=== PATIENT | female | born 1940 | race Hispanic/Latino ===

== ENCOUNTER 2018-07-14 15:17 | Inpatient (IN) | payer MEDICARE, BC ==
--- NOTE | 2018-07-14 16:24 | ED PDOC ---
Arrival/HPI - General Time Seen by Provider: 07/14/18 16:05 Historian: Patient - History of Present Illness Narrative History of Present Illness (Text): 07/14/18 16:20 77 year old female, whose past medical history includes CVA and a heart valve replacement, who presents to the ED complaining for right hand swelling and pain s/p fall yesterday. Patient states she tripped on her own feet and fell on cement onto her right hand. Patient notes she had a bracelet on her left hand and developed a reaction. Patient denies any LOC, head trauma, fever, chills, nausea, vomiting, diarrhea, back pain, neck pain, or any other complaints. Time/Duration: Other (1 day) Symptom Onset: Sudden Symptom Course: Unchanged Activities at Onset: Light Context: Home Past Medical History - Provider Review Nursing Documentation Reviewed: Yes - Cardiac Hx Cardiac Disorders: Yes Hx Hypertension: Yes Other/Comment: aortic aneurysm - Pulmonary Hx Respiratory Disorders: Yes Hx Pneumonia: Yes - Neurological Hx Neurological Disorder: Yes HX Cerebrovascular Accident: Yes (2011) Hx Dizziness: Yes Other/Comment: sometimes can't find the right words to say post cva - HEENT Hx HEENT Disorder: Yes Hx Cataracts: Yes (b/l sx) - Renal Hx Renal Disorder: No - Endocrine/Metabolic Hx Endocrine Disorders: No - Hematological/Oncological Hx Anemia: Yes - Integumentary Hx Dermatological Disorder: No - Musculoskeletal/Rheumatological Hx Falls: No - Gastrointestinal Hx Gastrointestinal Disorders: Yes Hx Gastroesophageal Reflux: Yes - Genitourinary/Gynecological Hx Genitourinary Disorders: No - Psychiatric Hx Substance Use: No - Past Surgical History Past Surgical History: No Previous - Surgical History Hx Cardiac Catheterization: Yes (last week) Other/Comment: left breast benign cyst removed 40 yrs ago - Suicidal Assessment Feels Threatened In Home Enviroment: No Family/Social History - Physician Review Nursing Documentation Reviewed: Yes Family/Social History: Unknown Family HX Smoking Status: Never Smoked Hx Alcohol Use: No Hx Substance Use: No Hx Substance Use Treatment: No Allergies/Home Meds Allergies/Adverse Reactions: Allergies Sulfa (Sulfonamide Antibiotics) Allergy (Verified 07/14/18 16:31) ANAPHYLAXIS Home Medications: Home Meds Medication Instructions Recorded Confirmed Warfarin [Coumadin] 5 mg PO DAILY 12/19/12 07/14/18 Pravastatin Sodium [Pravachol] 20 mg PO DAILY 12/30/16 07/14/18 Alendronate [Fosamax] 70 mg PO DAILY 07/14/18 07/14/18 Metoprolol Succinate [Toprol Xl] 100 mg PO DAILY 07/14/18 07/14/18 Pantoprazole [Protonix EC Tab] 40 mg PO DAILY 07/14/18 07/14/18 Sertraline [Zoloft] 50 mg PO DAILY 07/14/18 07/14/18 traZODone [Desyrel] 50 mg PO PRN PRN 07/14/18 07/14/18 Review of Systems - Physician Review All systems were reviewed & negative as marked: Yes - Review of Systems Constitutional: Normal Eyes: Normal ENT: Normal Respiratory: Normal. absent: SOB, Cough Cardiovascular: Normal. absent: Chest Pain Gastrointestinal: Normal. absent: Abdominal Pain Genitourinary Female: Normal Musculoskeletal: Other (rigth hand swelling and pain). absent: Back Pain, Neck Pain Skin: Rash (rt wrist) Neurological: Normal. absent: Headache, Dizziness Endocrine: Normal Hemo/Lymphatic: Normal Psychiatric: Normal Physical Exam Vital Signs Temp Pulse Resp BP Pulse Ox 07/14/18 22:24 98.1 F 60 17 128/76 99 07/14/18 21:55 98.3 F 61 16 147/69 100 07/14/18 16:40 97.9 F 61 18 156/78 H 97 07/14/18 15:18 97.9 F 61 18 168/94 H 97 - Systems Exam Head: Present: Atraumatic, Normocephalic Pupils: Present: PERRL Extroacular Muscles: Present: EOMI Conjunctiva: Present: Normal Mouth: Present: Moist Mucous Membranes Neck: Present: Normal Range of Motion. No: Meningeal Signs, MIDLINE TENDERNESS , Paraspinal Tenderness Respiratory/Chest: Present: Clear to Auscultation, Good Air Exchange. No: Respiratory Distress, Accessory Muscle Use Cardiovascular: Present: Regular Rate and Rhythm, Normal S1, S2. No: Murmurs Abdomen: No: Tenderness, Distention, Peritoneal Signs Back: Present: Normal Inspection Upper Extremity: Present: NORMAL PULSES, Swelling (rt hand ). No: Cyanosis, Edema Lower Extremity: Present: Normal Inspection. No: Edema Neurological: Present: GCS=15, CN II-XII Intact, Speech Normal Skin: Present: Erythematous (rt hand), Hot, Other (multiple bullae on inner rt wrist, roughtly 2x2cm area with of bullae. No crepitus, dusky appearance or pain out of proportion or fluctuance on exam. Good N/V status distal ). No: Rashes Psychiatric: Present: Alert, Oriented x 3, Normal Insight, Normal Concentration Medical Decision Making ED Course and Treatment: 07/14/18 16:26 Impression: 77 year old female presents to the ED c/o rt arm swelling and pain s/p fall yesterday. N/V intact distaly to obvious deformity to R wrist. No open fx. Likely cellulitis on R extremity. No indication of nec fasc on exam. Will xray, consult ortho regarding cellulitis overlaying likely fx. Progress Notes: 07/14/2018 18:[address] IMPRESSION: No acute intracranial abnormalities. No significant findigns to account for the clinical presentation. No significant interval change compared to the prior examination(s). Dictator: Lawrence Pak MD Neck cleared via nexus No pain in any other locations No snuffbox tenderness Xray w/ colles fx of R hand. Xray hand and elbow- largely unremarkable abx given regarding cellulitis Paged Dr. Bernardo ortho workers compensation defense attorney x3- no response: Dr. Chavez show images- we are to reduce fracture and sugartong splint Consent w/ concious sedation done. R colles Reduced. Good n/v status post reduction. admitted to hospitalist service: PMD admits directly to hospitalist. - Lab Interpretations Lab Results: 07/14/18 16:30 07/14/18 16:30 Lab Results 07/14/18 17:47: Blood Type O POSITIVE, Antibody Screen Negative, BBK History Checked Patient has bt 07/14/18 16:30: Sodium 133, Potassium 4.5, Chloride 94 L, Carbon Dioxide 29, Anion Gap 14, BUN 14, Creatinine 0.8, Est GFR ( Amer) > 60, Est GFR (Non- Af Amer) > 60, Random Glucose 97, Calcium 9.2, Magnesium 1.7, Total Bilirubin 1.0, AST 31, ALT 19, Alkaline Phosphatase 107, Total Creatine Kinase 82, Total Protein 7.3, Albumin 3.9, Globulin 3.4, Albumin/Globulin Ratio 1.2 07/14/18 16:30: PT 29.9 H, INR 2.57, APTT 38.2 H 07/14/18 16:30: WBC 6.8, RBC 4.56, Hgb 12.4, Hct 37.4, MCV 82.0, MCH 27.2, MCHC 33.2, RDW 15.0 H, Plt Count 219, MPV 9.3, Gran % 64.8, Lymph % (Auto) 21.4 L, [place] % (Auto) 10.6 H, Eos % (Auto) 2.8, Baso % (Auto) 0.4, Gran # 4.38, Lymph # (Auto) 1.5, [place] # (Auto) 0.7 H, Eos # (Auto) 0.2, Baso # (Auto) 0.03 - RAD Interpretation Radiology Orders: 07/14/18 16:34 HEAD W/O CONTRAST [CT] Stat HAND RIGHT 3 VIEWS [RAD] Stat WRIST, RIGHT 3 VIEWS [RAD] Stat 07/14/18 18:35 ELBOW RIGHT 3 VIEWS ROUTINE [RAD] Stat 07/14/18 22:11 WRIST, RIGHT 3 VIEWS [RAD] Stat - Medication Orders Current Medication Orders: Alendronate Sodium (Fosamax) 70 mg PO Q7D@0600 FRANSICO Atorvastatin Calcium (Lipitor) 20 mg PO DIN FRANSICO Metoprolol Succinate (Toprol Xl) 100 mg PO DAILY FRANSICO Morphine Sulfate (Morphine) 2 mg IVP Q4H PRN PRN Reason: Pain, severe (8-10) Pantoprazole Sodium (Protonix Ec Tab) 40 mg PO 0600 FRANSICO Sertraline HCl (Zoloft) 50 mg PO DAILY FRANSICO Trazodone HCl (Desyrel) 50 mg PO HS PRN PRN Reason: Sedation Warfarin Sodium (Coumadin) 5 mg PO 1800 FRANSICO PRN Reason: Protocol Discontinued Medications Acetaminophen (Tylenol 325mg Tab) 650 mg PO STAT STA Stop: 07/14/18 20:43 Diphenhydramine HCl (Benadryl) 25 mg IVP STAT STA Stop: 07/14/18 17:44 Last Admin: 07/14/18 17:50 Dose: 25 mg IVP Administration Document 07/14/18 17:50 DIANA (Rec: 07/14/18 17:50 DIANA [id number]) Charges for Administration # of IVP Administrations 1 Fentanyl (Fentanyl) 50 mcg IVP ONCE ONE Stop: 07/14/18 21:44 Last Admin: 07/14/18 21:57 Dose: 50 mcg MAR Pain Assessment Document 07/14/18 21:57 [facility] (Rec: 07/14/18 22:21 [id number] Pain Reassessment Is this a pain reassessment? No Sleep Is patient sleeping during reassessment? No Presence of Pain Presence of Pain No Pain Scale Used Pain Scale Used Numeric Location Left, Right or Bilateral Right Pain Location Body Site Hand Description Description Acute Pain Behavior Irritability Aggravating Factors ADL's IVP Administration Document 07/14/18 21:57 [facility] (Rec: 07/14/18 22:21 [id number] Charges for Administration # of IVP Administrations 1 Ceftriaxone Sodium (Rocephin 1 Gram Ivpb) 1 gm in 100 mls @ 200 mls/hr IVPB STAT STA PRN Reason: Protocol Stop: 07/14/18 17:33 Last Admin: 07/14/18 17:20 Dose: 200 mls/hr eMAR Start Stop Document 07/14/18 17:20 LA (Rec: 07/14/18 17:25 LA [id number]) Intravenous Solution Start Date 07/14/18 Start Time 17:25 End Date 07/14/18 End time 17:55 Total Infusion Time 30 Midazolam HCl (Versed Inj) 1 mg IVP ONCE ONE Stop: 07/14/18 21:40 Last Admin: 07/14/18 22:20 Dose: 1 mg IVP Administration Document 07/14/18 22:20 [facility] (Rec: 07/14/18 22:20 [id number] Charges for Administration # of IVP Administrations 1 - Scribe Statement The provider has reviewed the documentation as recorded by the Scribramila Mcgovern All medical record entries made by the Scribe were at my direction and personally dictated by me. I have reviewed the chart and agree that the record accurately reflects my personal performance of the history, physical exam, medical decision making, and the department course for this patient. I have also personally directed, reviewed, and agree with the discharge instructions and disposition. Disposition/Present on Arrival - Present on Arrival Any Indicators Present on Arrival: No History of DVT/PE: No History of Uncontrolled Diabetes: No Urinary Catheter: No History Surgical Site Infection Following: None - Disposition Have Diagnosis and Disposition been Completed?: Yes Diagnosis: Colles' fracture Disposition: HOSPITALIZED Disposition Time: 23:00 Patient Plan: Admission Condition: GOOD
[2018-07-14 16:32] VITALS: BMI 23.1
[2018-07-14] MEDS ORDERED: cefTRIAXone 1 gm 1 GM/100 ML BAG IVPB STA (17:04)
[2018-07-14 17:40] LABS: BASO # 0.03 K/mm3 (0.0-2.0); BASO % 0.4 % (0.0-3.0); EOS # 0.2 (0.0-0.7); EOS % 2.8 % (1.5-5.0); GRAN # 4.38 (1.4-6.5); GRAN % 64.8 % (50.0-68.0); HEMOGLOBIN 12.4 g/dL (12.0-16.0); LYMPH # 1.5 (1.2-3.4); LYMPH % 21.4 % (22.0-35.0); MEAN CORPUSCULAR HEMOGLOBIN 27.2 pg (25.0-35.0); MEAN CORPUSCULAR HGB CONC 33.2 g/dl (31.0-37.0); MEAN PLATELET VOLUME 9.3 fl (7.0-11.0); MONO # 0.7 (0.1-0.6); MONO % 10.6 % (1.0-6.0); RBC 4.56 10^6/uL (3.5-6.1); WHITE BLOOD COUNT 6.8 10^3/ul (4.5-11.0)
[2018-07-14 17:41] LABS: ALB/GLOB RATIO 1.2 (1.1-1.8); ALBUMIN 3.9 g/dL (3.0-4.8); ALT/SGPT 19 U/L (7-56); AST/SGOT 31 U/L (14-36); BLOOD UREA NITROGEN 14 mg/dL (7-21); CALCIUM 9.2 mg/dL (8.4-10.5); GFR AFRICAN-AMERICAN > 60; GFR NON-AFRICAN AMERICAN > 60
[2018-07-14] MEDS ORDERED: DiphenhydrAMINE 50 mg/ml Inj IVP STA (17:43)
[2018-07-14 17:45] LABS: INR 2.57; PARTIAL THROMBOPLASTIN TIME 38.2 Seconds (25.1-36.5); PROTHROMBIN TIME 29.9 SECONDS (9.4-12.5)
--- NOTE | 2018-07-14 18:28 | CT ---
Date of service: 07/14/2018 PROCEDURE: CT HEAD WITHOUT CONTRAST. HISTORY: fall COMPARISON: 12/14/2012 TECHNIQUE: Axial computed tomography images were obtained through the head/brain without intravenous contrast. Coronal and sagittal reconstructed images. Radiation dose: Total exam DLP = mGy-cm. This CT exam was performed using one or more of the following dose reduction techniques: Automated exposure control, adjustment of the mA and/or kV according to patient size, and/or use of iterative reconstruction technique. FINDINGS: HEMORRHAGE: No intracranial hemorrhage. BRAIN: No mass effect or edema. Cortical atrophy and chronic microvascular ischemic change. VENTRICLES: Unremarkable. No hydrocephalus. CALVARIUM: Unremarkable. PARANASAL SINUSES: Unremarkable as visualized. No significant inflammatory changes. MASTOID AIR CELLS: Unremarkable as visualized. No inflammatory changes. OTHER FINDINGS: None. IMPRESSION: No acute intracranial abnormalities. No significant findings to account for the clinical presentation. No significant interval change compared to the prior examination(s).
[2018-07-14] MEDS ORDERED: Midazolam 2 MG/2 ML VIAL IVP ONE (21:39)
--- NOTE | 2018-07-15 00:22 | CP.PCM.HP ---
<Juanjo Ceballos - Last Filed: 07/15/18 02:28> History of Present Illness - History of Present Illness History of Present Illness: Juanjo Ceballos, PGY-1 History and Physical for Hospitalist Service CC: R wrist swelling HPI: Ms. De La Rosa is a 77 year old Female with a PMHx of Aortic aneurysm s/p Aortic valve replacement in 11/2016 (on Warfarin), CVA in 2011, cataracts, anemia , HTN, GERD who presents with R wrist swelling s/p backward mechanical fall on the cement yesterday afternoon. Patient reports pain at the site that has persisted. Patient admits to some nausea that began yesterday along with dry heaves but has since resolved. Patient reports that she has worn a medical bracelet on her R arm for years indicating that she uses Warfarin, and that she noticed swelling distally into the arm that prevented her from taking off the bracelet. Patient reports digging her fingers into her swollen arm to try to remove the bracelet. Patient reports a bruise at the site as well. Patient denies chest pain, palpitations, headaches, dizziness, shortness of breath, fevers, chills, vomiting, abdominal pain, changes in urinary or bowel habits, sick contacts or weight changes. Picture below was taken before the internal fixation in the ED. In the ED, patient underwent an internal fixation for the likely Colles fracture of the R wrist per Ortho's recommendations. Patient received midazolam , fentanyl, and ceftriaxone in the ED. PMHx: Aortic aneurysm s/p Aortic valve replacement in 11/2016, CVA in 2011, cataracts, anemia, HTN, GERD PSHx: L benign breast cyst All: Sulfa ABx (anaphylaxis) Social Hx: Social ETOH, denies IVDU and tobacco. Lives home alone Family hx: Brother and dad both from prostate CA before age 70 Meds: Trazodone 50 mg HS, Coumadin 5 mg, Zoloft 50 mg PO, Pravastatin 20 mg , Pantoprazole 40 mg, Metoprolol 100 mg, Alendronate 70 weekly PMD: Dr. Watson (Call was placed to Dr. Douglass overnight and she refused admission and deferred to hospitalist team. Cardio: Dr. Ibarra Orthopedist: Dr. Chavez Present on Admission - Present on Admission Any Indicators Present on Admission: No Review of Systems - Review of Systems Review of Systems: 12 point ROS completed and negative except as described in HPI. Past Patient History - Past Social History Smoking Status: Never Smoked - CARDIAC Hx Cardiac Disorders: Yes Hx Hypertension: Yes Other/Comment: aortic aneurysm - PULMONARY Hx Respiratory Disorders: Yes Hx Pneumonia: Yes - NEUROLOGICAL Hx Neurological Disorder: Yes HX Cerebrovascular Accident: Yes (2011) Hx Dizziness: Yes Other/Comment: sometimes can't find the right words to say post cva - HEENT Hx HEENT Problems: Yes Hx Cataracts: Yes (b/l sx) - RENAL Hx Chronic Kidney Disease: No - ENDOCRINE/METABOLIC Hx Endocrine Disorders: No - HEMATOLOGICAL/ONCOLOGICAL Hx Anemia: Yes - INTEGUMENTARY Hx Dermatological Problems: No - MUSCULOSKELETAL/RHEUMATOLOGICAL Hx Falls: No - GASTROINTESTINAL Hx Gastrointestinal Disorders: Yes Hx Gastroesophageal Reflux: Yes - GENITOURINARY/GYNECOLOGICAL Hx Genitourinary Disorders: No - PSYCHIATRIC Hx Substance Use: No - SURGICAL HISTORY Hx Cardiac Catheterization: Yes (last week) Other/Comment: left breast benign cyst removed 40 yrs ago - ANESTHESIA Hx Anesthesia: Yes Hx Anesthesia Reactions: No Hx Malignant Hyperthermia: No Meds Allergies/Adverse Reactions: Allergies Allergy/AdvReac Type Severity Reaction Status Date / Time latex Allergy Mild RASH Verified 07/15/18 20:03 Sulfa (Sulfonamide Allergy ANAPHYLAXIS Verified 07/14/18 16:31 Antibiotics) Physical Exam - Constitutional Appears: Well, Non-toxic, No Acute Distress - Head Exam Head Exam: NORMOCEPHALIC Additional comments: chronic scar in L upper forehead. - Eye Exam Eye Exam: EOMI, Normal appearance Pupil Exam: PERRL - ENT Exam ENT Exam: Mucous Membranes Moist - Neck Exam Neck exam: Positive for: Normal Inspection - Respiratory Exam Respiratory Exam: Clear to Auscultation Bilateral, NORMAL BREATHING PATTERN - Cardiovascular Exam Cardiovascular Exam: RRR, +S1, +S2 - GI/Abdominal Exam GI & Abdominal Exam: Normal Bowel Sounds, Soft. absent: Distended, Guarding, Rebound, Tenderness - Expanded Upper Extremities Exam Right General: absent: normal inspection Elbow exam: tenderness over radial head (could not evaluate because already in cast when I saw patient) Forearm Wrist exam: deformity (Refer to picture in HPI. 4 cm x 3 cm Underlying eccyhmosis underneath multiple honey colored pustules on skin.), ecchymosis, swelling, tenderness (anterior wrist) Neuro motor exam: finger 2-5 abduction intact, thumb opposition intact, wrist extension intact Neurosensory exam: 2-poit discrimination, median nerve intact, radial nerve intact Vascular exam: normal capillary refill (some bluish discoloration on palm of hand) - Back Exam Back exam: NORMAL INSPECTION. absent: CVA tenderness (L), CVA tenderness (R) - Neurological Exam Neurological exam: Alert, Oriented x3 - Psychiatric Exam Psychiatric exam: Normal Affect, Normal Mood - Skin Skin Exam: Dry, Intact, Normal Color, Warm (except as described in R forearm) Results - Vital Signs Recent Vital Signs: Last Vital Signs Temp 98.1 F 07/14/18 22:24 Pulse 60 07/14/18 22:24 Resp 17 07/14/18 22:24 BP 128/76 07/14/18 22:24 Pulse Ox 99 07/14/18 22:24 - Labs Result Diagrams: 07/14/18 16:30 07/14/18 16:30 Assessment & Plan - Assessment and Plan (Free Text) Assessment: 77 year old F with PMHx of CVA, Aortic valve replacement, HTN, GERD and anemia who presents s/p colles fracture with overlying superficial skin infection. Plan: Open fixation 2/2 Colles Fracture s/p fall with overlying secondary infection 2/ 2 staph vs allergic reaction CT head negative f/u imaging Hand x-ray, Wrist x-ray x2 and elbow x-ray after fixation Source of infection as bracelet unlikely as patient has worn bracelet for years. Infection likely 2/2 nonsterile touching to open, swollen skin after fall Keep hand elevated, f/u pulses q1 Morphine 2 mg q4 as needed for pain Clinda 600 q8 ordered for skin infection. Received Ceftriaxone in ED. ID consult placed - appreciate recommendations f/u wound and blood cx f/u AM labs Aortic valve replacement continue on Warfarin 5 home dose f/u AM PT, INR, PTT HTN c/w home meds HLD c/w home meds Mood disorder, unspecified c/w home meds GI/DVT ppx Protonix, Warfarin Disposition: OT/PT placed - f/u activity recommendations Patient seen, case reviewed and plan discussed with Dr. Martines. Juanjo Ceballos, PGY-1 <Jair Martines N - Last Filed: 07/16/18 03:09> Results - Vital Signs Recent Vital Signs: Last Vital Signs Temp 98.4 F 07/15/18 22:29 Pulse 80 07/15/18 22:29 Resp 16 07/15/18 22:29 BP 131/69 07/15/18 22:29 Pulse Ox 95 07/15/18 22:29 - Labs Result Diagrams: 07/15/18 06:20 07/15/18 06:20
[2018-07-15] MEDS ORDERED: Morphine 2 mg/ml ISec IVP PRN ×2 (00:33→10:56)
[2018-07-15] MEDS: Clindamycin 600mg/50ml D5W 600 MG/50 ML VIAL IVPB SCH ×2 (02:55→09:30)
[2018-07-15 07:00] LABS: INR 2.95; PARTIAL THROMBOPLASTIN TIME 38.7 Seconds (25.1-36.5); PROTHROMBIN TIME 34.7 SECONDS (9.4-12.5)
[2018-07-15 07:20] LABS: BASO # 0.04 K/mm3 (0.0-2.0); BASO % 0.6 % (0.0-3.0); EOS # 0.5 (0.0-0.7); EOS % 7.2 % (1.5-5.0); GRAN # 3.15 (1.4-6.5); GRAN % 49.6 % (50.0-68.0); HEMOGLOBIN 11.5 g/dL (12.0-16.0); LYMPH # 1.9 (1.2-3.4); LYMPH % 30.3 % (22.0-35.0); MEAN CELL VOLUME 82.2 fl (80.0-105.0); MEAN CORPUSCULAR HEMOGLOBIN 26.6 pg (25.0-35.0); MEAN CORPUSCULAR HGB CONC 32.3 g/dl (31.0-37.0); MEAN PLATELET VOLUME 9.6 fl (7.0-11.0); MONO # 0.8 (0.1-0.6); MONO % 12.3 % (1.0-6.0); RBC 4.33 10^6/uL (3.5-6.1); RED CELL DISTRIBUTION WIDTH 15.1 % (11.5-14.5); WHITE BLOOD COUNT 6.4 10^3/ul (4.5-11.0)
[2018-07-15 07:23] LABS: ALB/GLOB RATIO 1.1 (1.1-1.8); ALBUMIN 3.3 g/dL (3.0-4.8); ALT/SGPT 21 U/L (7-56); AST/SGOT 38 U/L (14-36); BLOOD UREA NITROGEN 16 mg/dL (7-21); CALCIUM 8.6 mg/dL (8.4-10.5); GFR AFRICAN-AMERICAN > 60; GFR NON-AFRICAN AMERICAN > 60
[2018-07-15] MEDS: Lactobacillus Acidophilus 500 MU Cap PO SCH ×2 (09:20→17:02)
[2018-07-15] MEDS: Metoprolol Succinate 100 mg XL Tab PO SCH (09:21)
--- NOTE | 2018-07-15 10:27 | RAD ---
Date of service: 07/14/2018 PROCEDURE: Right Wrist Radiographs. HISTORY: fall COMPARISON: None. FINDINGS: BONES: There is diffuse bone demineralization. There is an acute transverse nondisplaced impacted fracture in the distal radius with mild volar angulation and 6 mm posterior displacement. There is an acute transverse nondisplaced fracture in the styloid process of ulna. 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 No dislocation. SOFT TISSUES: Normal. OTHER FINDINGS: None. IMPRESSION: Acute transverse nondisplaced impacted fracture in the distal radius with mild volar angulation and 6 mm posterior displacement. Acute transverse nondisplaced fracture in the styloid process of ulna.
--- NOTE | 2018-07-15 10:45 | RAD ---
PROCEDURE: Right Hand Radiographs. HISTORY: fall COMPARISON: None. FINDINGS: BONES: There is diffuse bone demineralization. There is no acute displaced fracture or bone destruction. Bone alignment is normal. JOINTS: There is severe degenerative osteoarthrosis is the distal interphalangeal joints of the 2nd, 3rd and 5th digits and proximal interphalangeal joints of the 3rd and 4th disease. SOFT TISSUES: Normal. OTHER FINDINGS: None. IMPRESSION: No acute fracture or dislocation.
--- NOTE | 2018-07-15 10:47 | RAD ---
Date of service: 07/14/2018 PROCEDURE: Radiographs of the right elbow. HISTORY: fall COMPARISON: No prior. FINDINGS: BONES: Bone alignment and mineralization are normal. There is no acute displaced fracture or bone destruction. JOINTS: Normal. No osteoarthritis. SOFT TISSUES: Normal. JOINT EFFUSION: None. OTHER FINDINGS: None. IMPRESSION: No acute fracture or dislocation.
--- NOTE | 2018-07-15 12:46 | RAD ---
Date of service: 07/14/2018 PROCEDURE: Right Wrist Radiographs. HISTORY: post reduction COMPARISON: 07/14/2018 FINDINGS: BONES: Status post closed reduction of acute transverse impacted mildly posterior displaced fracture in the distal radius. There is improved alignment of the fracture fragments on the lateral projection. Redemonstration of acute nondisplaced fracture in the styloid process of ulna. There is diffuse bone demineralization. JOINTS: Normal. No dislocation. SOFT TISSUES: Normal. OTHER FINDINGS: None. IMPRESSION: Status post close reduction of distal radial fracture, interval improved alignment of fracture fragments in the lateral projection.
--- NOTE | 2018-07-15 13:18 | CP.PCM.CON ---
<Chelo Nash - Last Filed: 07/15/18 13:18> History of Present Illness - History of Present Illness History of Present Illness: PGY-2 infectious disease consult note for Dr. Alonzo's service 77 year old Female with a PMH of Aortic aneurysm s/p Aortic valve replacement in 11/2016 (on Warfarin), CVA in 2011, cataracts, anemia, HTN, GERD who presents with right wrist swelling s/p backward mechanical fall on the cement 2 days ago. Patient reports pain at the site that has persisted. Patient admits to some nausea that began shorty after the fall but has since resolved. Patient also reports fluid filled bullae on her wrist that developed after fall. Patient is concerned that is ,ay be from a medical bracelet that she wore on her right arm. She noticed swelling distally into the arm that prevented her from taking off the bracelet and had to dig her fingers into her swollen arm to try to remove the bracelet. Patient reports a bruise at the site as well. Patient denies chest pain, palpitations, headaches, dizziness, shortness of breath, fevers, chills, vomiting, abdominal pain, changes in urinary or bowel habits, sick contacts or weight changes. In ED patient had internal fixation of the fracture. PMH: Aortic aneurysm s/p Aortic valve replacement in 11/2016, CVA in 2011, cataracts, anemia, HTN, GERD PSH: hip surgery, left benign breast cyst Allergy: Sulfa Social History: Social alcohol use, denies smoking or illicit drug use. Lives home alone Family history: Brother and dad both from prostate CA before age 70 Review of Systems - Review of Systems All systems: reviewed and no additional remarkable complaints except Past Patient History - Past Social History Smoking Status: Never Smoked - CARDIAC Hx Cardiac Disorders: Yes Hx Hypertension: Yes Other/Comment: aortic aneurysm - PULMONARY Hx Respiratory Disorders: Yes Hx Pneumonia: Yes - NEUROLOGICAL Hx Neurological Disorder: Yes HX Cerebrovascular Accident: Yes (2011) Hx Dizziness: Yes Other/Comment: sometimes can't find the right words to say post cva - HEENT Hx HEENT Problems: Yes Hx Cataracts: Yes (b/l sx) - RENAL Hx Chronic Kidney Disease: No - ENDOCRINE/METABOLIC Hx Endocrine Disorders: No - HEMATOLOGICAL/ONCOLOGICAL Hx Anemia: Yes - INTEGUMENTARY Hx Dermatological Problems: No - MUSCULOSKELETAL/RHEUMATOLOGICAL Hx Falls: No - GASTROINTESTINAL Hx Gastrointestinal Disorders: Yes Hx Gastroesophageal Reflux: Yes - GENITOURINARY/GYNECOLOGICAL Hx Genitourinary Disorders: No - PSYCHIATRIC Hx Substance Use: No - SURGICAL HISTORY Hx Cardiac Catheterization: Yes (last week) Other/Comment: left breast benign cyst removed 40 yrs ago - ANESTHESIA Hx Anesthesia: Yes Hx Anesthesia Reactions: No Hx Malignant Hyperthermia: No Meds Allergies/Adverse Reactions: Allergies Allergy/AdvReac Type Severity Reaction Status Date / Time Sulfa (Sulfonamide Allergy ANAPHYLAXIS Verified 07/14/18 16:31 Antibiotics) - Medications Medications: Current Medications Atorvastatin Calcium (Lipitor) 20 mg PO DIN [facility] Last Admin: 07/15/18 01:39 Dose: 20 mg Cefazolin Sodium (Ancef 1gm In Ns) 1 gm in 100 mls @ 100 mls/hr IVPB Q8 [facility] PRN Reason: Protocol Lactobacillus Acidophilus (Bacid Acidophilus) 1 cap PO BID [facility] Last Admin: 07/15/18 09:20 Dose: 1 cap Metoprolol Succinate (Toprol Xl) 100 mg PO DAILY [facility] Last Admin: 07/15/18 09:21 Dose: 100 mg Morphine Sulfate (Morphine) 1 mg IVP Q4H PRN PRN Reason: Pain, severe (8-10) Pantoprazole Sodium (Protonix Ec Tab) 40 mg PO 0600 [facility] Sertraline HCl (Zoloft) 50 mg PO DAILY [facility] Last Admin: 07/15/18 09:20 Dose: 50 mg Trazodone HCl (Desyrel) 50 mg PO HS PRN PRN Reason: Sedation Last Admin: 07/15/18 01:39 Dose: 50 mg Warfarin Sodium (Coumadin) 5 mg PO 1800 [facility] PRN Reason: Protocol Physical Exam - Constitutional Appears: No Acute Distress - Head Exam Head Exam: ATRAUMATIC, NORMAL INSPECTION, NORMOCEPHALIC - Eye Exam Eye Exam: Normal appearance - ENT Exam ENT Exam: Mucous Membranes Moist - Respiratory Exam Respiratory Exam: Clear to Auscultation Bilateral, NORMAL BREATHING PATTERN. absent: Decreased Breath Sounds, Rales, Rhonchi, Wheezes, Respiratory Distress - Cardiovascular Exam Cardiovascular Exam: REGULAR RHYTHM, +S1, +S2, Systolic Murmur. absent: Bradycardia, Tachycardia - GI/Abdominal Exam GI & Abdominal Exam: Normal Bowel Sounds, Soft. absent: Diminished Bowel Sounds , Distended, Firm, Guarding, Tenderness - Extremities Exam Additional comments: right upper extremity with cast s/p internal fixation - Neurological Exam Neurological exam: Alert, Oriented x3 - Psychiatric Exam Psychiatric exam: Normal Affect, Normal Mood - Skin Skin Exam: Normal Color, Warm Results - Vital Signs Recent Vital Signs: Last Vital Signs Temp 98 F 07/15/18 06:00 Pulse 56 L 07/15/18 06:00 Resp 18 07/15/18 06:00 BP 135/77 07/15/18 09:21 Pulse Ox 96 07/15/18 06:00 - Labs Result Diagrams: 07/15/18 06:20 07/15/18 06:20 Labs: Laboratory Results - last 24 hr 07/15/18 07/15/18 07/15/18 06:20 06:20 06:20 WBC 6.4 RBC 4.33 Hgb 11.5 L Hct 35.6 L MCV 82.2 MCH 26.6 MCHC 32.3 RDW 15.1 H Plt Count 201 MPV 9.6 Gran % 49.6 L Lymph % (Auto) 30.3 [place] % (Auto) 12.3 H Eos % (Auto) 7.2 H Baso % (Auto) 0.6 Gran # 3.15 Lymph # (Auto) 1.9 [place] # (Auto) 0.8 H Eos # (Auto) 0.5 Baso # (Auto) 0.04 PT 34.7 H INR 2.95 APTT 38.7 H Sodium 135 Potassium 3.9 Chloride 99 Carbon Dioxide 28 Anion Gap 12 BUN 16 Creatinine 0.9 Est GFR ( Amer) > 60 Est GFR (Non-Af Amer) > 60 Random Glucose 91 Calcium 8.6 Phosphorus 3.7 Magnesium 1.7 Total Bilirubin 0.5 AST 38 H D ALT 21 Alkaline Phosphatase 86 Total Protein 6.3 Albumin 3.3 Globulin 3.0 Albumin/Globulin Ratio 1.1 TSH 3rd Generation 07/15/18 06:20 WBC RBC Hgb Hct MCV MCH MCHC RDW Plt Count MPV Gran % Lymph % (Auto) [place] % (Auto) Eos % (Auto) Baso % (Auto) Gran # Lymph # (Auto) [place] # (Auto) Eos # (Auto) Baso # (Auto) PT INR APTT Sodium Potassium Chloride Carbon Dioxide Anion Gap BUN Creatinine Est GFR ( Amer) Est GFR (Non-Af Amer) Random Glucose Calcium Phosphorus Magnesium Total Bilirubin AST ALT Alkaline Phosphatase Total Protein Albumin Globulin Albumin/Globulin Ratio TSH 3rd Generation 1.87 Assessment & Plan - Assessment and Plan (Free Text) Assessment: 77 year old Female with a PMH of Aortic aneurysm s/p Aortic valve replacement in 11/2016 (on Warfarin), CVA in 2011, cataracts, anemia, HTN, GERD who presents with right wrist swelling s/p mechanical fall found to have fractures and possible cellulitis. Xray showed acute transverse nondisplaced impacted fracture in the distal radius and nondisplaced fracture in the styloid process of the ulna. Patient is a febrile without leukocytosis, no SIRS. Will start patient on cefazolin. follow up wound cultures and blood cultures. case seen and discussed with Dr. Alonzo <Juno Alonzo - Last Filed: 07/15/18 14:59> Meds - Medications Medications: Current Medications Atorvastatin Calcium (Lipitor) 20 mg PO DIN [facility] Last Admin: 07/15/18 01:39 Dose: 20 mg Cefazolin Sodium (Ancef 1gm In Ns) 1 gm in 100 mls @ 100 mls/hr IVPB Q8 [facility] PRN Reason: Protocol Last Admin: 07/15/18 13:47 Dose: 100 mls/hr Lactobacillus Acidophilus (Bacid Acidophilus) 1 cap PO BID [facility] Last Admin: 07/15/18 09:20 Dose: 1 cap Metoprolol Succinate (Toprol Xl) 100 mg PO DAILY [facility] Last Admin: 07/15/18 09:21 Dose: 100 mg Morphine Sulfate (Morphine) 1 mg IVP Q4H PRN PRN Reason: Pain, severe (8-10) Pantoprazole Sodium (Protonix Ec Tab) 40 mg PO 0600 [facility] Sertraline HCl (Zoloft) 50 mg PO DAILY [facility] Last Admin: 07/15/18 09:20 Dose: 50 mg Trazodone HCl (Desyrel) 50 mg PO HS PRN PRN Reason: Sedation Last Admin: 07/15/18 01:39 Dose: 50 mg Warfarin Sodium (Coumadin) 5 mg PO 1800 [facility] PRN Reason: Protocol Results - Vital Signs Recent Vital Signs: Last Vital Signs Temp 98.4 F 07/15/18 14:00 Pulse 69 07/15/18 14:00 Resp 18 07/15/18 14:00 BP 108/53 L 08/17/18 14:00 Pulse Ox 96 07/15/18 14:00 - Labs Result Diagrams: 07/15/18 06:20 07/15/18 06:20 Labs: Laboratory Results - last 24 hr 07/15/18 07/15/18 07/15/18 06:20 06:20 06:20 WBC 6.4 RBC 4.33 Hgb 11.5 L Hct 35.6 L MCV 82.2 MCH 26.6 MCHC 32.3 RDW 15.1 H Plt Count 201 MPV 9.6 Gran % 49.6 L Lymph % (Auto) 30.3 [place] % (Auto) 12.3 H Eos % (Auto) 7.2 H Baso % (Auto) 0.6 Gran # 3.15 Lymph # (Auto) 1.9 [place] # (Auto) 0.8 H Eos # (Auto) 0.5 Baso # (Auto) 0.04 PT 34.7 H INR 2.95 APTT 38.7 H Sodium 135 Potassium 3.9 Chloride 99 Carbon Dioxide 28 Anion Gap 12 BUN 16 Creatinine 0.9 Est GFR ( Amer) > 60 Est GFR (Non-Af Amer) > 60 Random Glucose 91 Calcium 8.6 Phosphorus 3.7 Magnesium 1.7 Total Bilirubin 0.5 AST 38 H D ALT 21 Alkaline Phosphatase 86 Total Protein 6.3 Albumin 3.3 Globulin 3.0 Albumin/Globulin Ratio 1.1 TSH 3rd Generation 07/15/18 06:20 WBC RBC Hgb Hct MCV MCH MCHC RDW Plt Count MPV Gran % Lymph % (Auto) [place] % (Auto) Eos % (Auto) Baso % (Auto) Gran # Lymph # (Auto) [place] # (Auto) Eos # (Auto) Baso # (Auto) PT INR APTT Sodium Potassium Chloride Carbon Dioxide Anion Gap BUN Creatinine Est GFR ( Amer) Est GFR (Non-Af Amer) Random Glucose Calcium Phosphorus Magnesium Total Bilirubin AST ALT Alkaline Phosphatase Total Protein Albumin Globulin Albumin/Globulin Ratio TSH 3rd Generation 1.87 Assessment & Plan - Assessment and Plan (Free Text) Assessment: Infectious Diseases Attending Physician Addendum Patient seen and examined, discussed with medical office assistant. I have reviewed the pertinent clinical information for the patient, including history of present illness, medical, personal and social histories, lab results and imaging findings. I agree with the above findings, assessment and plan. In addition, will start Cefazolin for this patient with right distal arm fracture with associated with cellulitis. Follow up blood cx.
[2018-07-15] MEDS: ceFAZolin 1 gm in NS 1 GM/100 ML BAG IVPB SCH ×2 (13:47→22:08)
--- NOTE | 2018-07-15 23:48 | CON ---
Copied To: Bruce Singh DO Attending MD: Bruce Singh DO DATE: 07/15/2018 ORTHOPEDIC REPORT LOCATION: This is a 77-year-old female in room 564, bed 2. HISTORY OF PRESENT ILLNESS: A 77-year-old female. She has history that she has tripped and fell in the garden and sustained a highly comminuted dorsally displaced fracture of her right distal dominant radius. She did the injury on 07/13/2018, but came to the ER on 07/14/2018 and was admitted to the hospital with the swollen right distal radius. She has good neurologic status. , she has had attempted 1:01 reduction in the emergency room with suboptimal reduction, but we have to deal with this is because I do not want to reduce again right now, this was swollen as well as the chance of that could swell too much that may require urgent surgery but we are going to let the swelling subside, get a CAT scan. She is in a coaptation splint, had not well done, but I will have to be responsible for her and we will follow her and now through the x-ray it looks like of the CAT scan and I told she did need another procedure and if swelling goes down to improve the reduction of that right dominant wrist fracture. In the meantime, we will elevate it and she can ambulate with the cane in the left hand. She does live by herself. I will follow her in the office in accomplish her reduction when the swelling goes down before she goes home. Bruce Singh DO [place]
[2018-07-16] MEDS: Pantoprazole 40 mg EC Tab PO SCH (05:45)
[2018-07-16] MEDS: ceFAZolin 1 gm in NS 1 GM/100 ML BAG IVPB SCH ×3 (05:46→21:13)
[2018-07-16 06:52] LABS: BASO # 0.03 K/mm3 (0.0-2.0); BASO % 0.5 % (0.0-3.0); EOS # 0.5 (0.0-0.7); EOS % 8.3 % (1.5-5.0); GRAN # 2.76 (1.4-6.5); GRAN % 46.6 % (50.0-68.0); HEMOGLOBIN 11.7 g/dL (12.0-16.0); LYMPH % 33.6 % (22.0-35.0); MEAN CELL VOLUME 82.4 fl (80.0-105.0); MEAN CORPUSCULAR HEMOGLOBIN 26.4 pg (25.0-35.0); MEAN CORPUSCULAR HGB CONC 32.1 g/dl (31.0-37.0); MEAN PLATELET VOLUME 9.3 fl (7.0-11.0); MONO # 0.7 (0.1-0.6); RBC 4.43 10^6/uL (3.5-6.1); RED CELL DISTRIBUTION WIDTH 15.2 % (11.5-14.5); WHITE BLOOD COUNT 5.9 10^3/ul (4.5-11.0)
[2018-07-16 07:08] LABS: ALB/GLOB RATIO 1.1 (1.1-1.8); ALBUMIN 3.3 g/dL (3.0-4.8); ALT/SGPT 30 U/L (7-56); AST/SGOT 32 U/L (14-36); BLOOD UREA NITROGEN 17 mg/dL (7-21); CALCIUM 8.5 mg/dL (8.4-10.5); GFR AFRICAN-AMERICAN > 60; GFR NON-AFRICAN AMERICAN > 60
[2018-07-16 07:48] LABS: INR 2.54; PROTHROMBIN TIME 29.8 SECONDS (9.4-12.5)
[2018-07-16] MEDS: Lactobacillus Acidophilus 500 MU Cap PO SCH ×2 (09:13→17:35)
[2018-07-16] MEDS: Metoprolol Succinate 100 mg XL Tab PO SCH (09:14)
--- NOTE | 2018-07-16 13:03 | PN ---
Copied To: Wes Rose MD Attending MD: Wes Rose MD DATE: 07/16/2018 SUBJECTIVE: The patient is in bed, in no acute distress. PHYSICAL EXAMINATION: VITAL SIGNS: Temperature is 98, blood pressure is 130/60, respiratory rate of 18. HEENT: Unremarkable. NECK: Supple. LUNGS: Have decreased breath sounds. HEART: Normal S1, S2. ABDOMINAL: Soft, nontender. LABORATORY EXAMINATION: Reveals a white count of 5.9, hemoglobin of 11 and platelets of 186. Coagulation is noted. Chemistries reveals a BUN of 17, creatinine of 0.7 and microbiology reveals the blood cultures are negative. Review of orders reveals the patient to be on cefazolin. ASSESSMENT AND PLAN: A 77-year-old female with past medical history significant for aortic aneurysm with aortic valve replacement 2016, history of cerebrovascular accident, cataracts, and with a right swelling status post mechanical fall. The patient is febrile without leukocytosis. No systemic inflammatory response syndrome, on cefazolin with a right distal arm fracture and associated cellulitis. Thus far, a negative blood cultures and the patient has been afebrile throughout the hospitalization. She has no fevers and no white count. Negative blood cultures at 24 hours. We will check on the final culture results and make recommendations. Wes Rose MD : 07/16/2018 10:44:22
--- NOTE | 2018-07-16 13:42 | CP.PCM.PN ---
<Demetrio Arias - Last Filed: 07/16/18 14:57> Subjective - Date & Time of Evaluation Date of Evaluation: 07/16/18 Time of Evaluation: 07:05 - Subjective Subjective: Demertio Arias D.O PGY1 Internal Medicine Progress Note for Dr. Herbert Patient seen and examined at bedside. No significant overnight events. Patient still having right hand swelling, right thumb numbness. Pain is well controlled with meds. She is ambulating in her room, eating breakfast. Patient denied chest pain, fever, chills, SOB, headache, dizziness, palpitations. Patient is waiting to go reduction of her right wrist fracture. Objective - Vital Signs/Intake and Output Vital Signs (last 24 hours): Temp Pulse Resp BP Pulse Ox 98.4 F 69 16 150/90 95 07/15/18 22:29 07/16/18 09:14 07/15/18 22:29 07/16/18 09:14 07/15/18 22:29 - Medications Medications: Current Medications Atorvastatin Calcium (Lipitor) 20 mg PO DIN [facility] Last Admin: 07/15/18 17:02 Dose: 20 mg Cefazolin Sodium (Ancef 1gm In Ns) 1 gm in 100 mls @ 100 mls/hr IVPB Q8 [facility] PRN Reason: Protocol Last Admin: 07/16/18 05:46 Dose: 100 mls/hr Lactobacillus Acidophilus (Bacid Acidophilus) 1 cap PO BID [facility] Last Admin: 07/16/18 09:13 Dose: 1 cap Metoprolol Succinate (Toprol Xl) 100 mg PO DAILY [facility] Last Admin: 07/16/18 09:14 Dose: 100 mg Morphine Sulfate (Morphine) 1 mg IVP Q4H PRN PRN Reason: Pain, severe (8-10) Pantoprazole Sodium (Protonix Ec Tab) 40 mg PO 0600 [facility] Last Admin: 07/16/18 05:45 Dose: 40 mg Sertraline HCl (Zoloft) 50 mg PO DAILY [facility] Last Admin: 07/16/18 09:14 Dose: 50 mg Trazodone HCl (Desyrel) 50 mg PO HS PRN PRN Reason: Sedation Last Admin: 07/15/18 01:39 Dose: 50 mg - Labs Labs: 07/16/18 06:15 07/16/18 06:15 PT 29.8 SECONDS (9.4-12.5) H 07/16/18 06:15 INR 2.54 07/16/18 06:15 APTT 38.7 Seconds (25.1-36.5) H 07/15/18 06:20 - Constitutional Appears: Well, No Acute Distress - Head Exam Head Exam: ATRAUMATIC, NORMAL INSPECTION, NORMOCEPHALIC - Eye Exam Eye Exam: EOMI, Normal appearance, PERRL Pupil Exam: NORMAL ACCOMODATION, PERRL - ENT Exam ENT Exam: Mucous Membranes Moist, Normal Exam - Neck Exam Neck Exam: Full ROM, Normal Inspection. absent: Lymphadenopathy - Respiratory Exam Respiratory Exam: Clear to Ausculation Bilateral, NORMAL BREATHING PATTERN - Cardiovascular Exam Cardiovascular Exam: Irregular Rhythm, +S1, +S2, Murmur - Extremities Exam Additional comments: Right arm: right wrist splint. right hand edema, numbness on right thumb. normal color, no erythema, no skin changes on fingers, intact sensation and motor function. - Back Exam Back Exam: NORMAL INSPECTION - Neurological Exam Neurological Exam: Alert, Awake, CN II-XII Intact, Normal Gait, Oriented x3 - Psychiatric Exam Psychiatric exam: Normal Affect, Normal Mood - Skin Skin Exam: Dry, Intact, Normal Color, Warm Assessment and Plan - Assessment and Plan (Free Text) Assessment: 77 y/o Female with PMH of Aortic aneurysm s/p Aortic valve replacement in 2016 (on Warfarin), CVA in 2011, cataracts, anemia, HTN, GERD who presents with right wrist swelling s/p mechanical fall. Patient found to have right acute transverse nondisplaced impacted fracture in the distal radius and non displaced fracture in the styloid process of the ulna with possible cellulitis. Plan: S/P closed reduction of right distal radial fracture with possible cellulitis - Hand x-ray S/P closed reduction shows improved alignment of fracture fragments in lateral projection - E lbow x-ray no fx or dislocation - Per ID consult: Patient is afebrile without leukocytosis, no SIRS. Will start patient on cefazolin. follow up wound cultures and blood cultures - Patient is scheduled for othropedic surgery on Wednesday as per Dr Carmen - Keep hand elevated, f/u pulses q1 - Morphine 2 mg q4 prn for pain - Blood cx. negative after 24 hr - CT head negative - CT upper extremity done. read pending Mitral valve proplase s/p aortic valve replacement - Pre-op cardiac clearance as per surgery. CXR, ECHO, EKG ordered. f/u results - Warfarin held for surgery. - f/u INR. adminster lovenox as needed. hold anticoagulation prior to surgery HTN c/w home med toprol xl HLD continue home med lipitor Depression continue home meds zoloft, trazodone GI ppx Protonix DVT ppx SCD Heart healthy diet Fall precautions Case reviewed and discussed with Teresa Herbert <Whit Herbert - Last Filed: 07/18/18 07:55> Objective - Vital Signs/Intake and Output Vital Signs (last 24 hours): Temp Pulse Resp BP Pulse Ox 97.6 F 61 20 126/54 L 95 07/17/18 21:47 07/17/18 21:47 07/17/18 21:47 07/17/18 21:47 07/17/18 21:47 Intake and Output: 07/18/18 07/18/18 06:59 18:59 Intake Total 1080 Balance 1080 - Medications Medications: Current Medications Atorvastatin Calcium (Lipitor) 20 mg PO DIN [facility] Last Admin: 07/17/18 17:38 Dose: 20 mg Cefazolin Sodium (Ancef 1gm In Ns) 1 gm in 100 mls @ 100 mls/hr IVPB Q8 [facility] PRN Reason: Protocol Last Admin: 07/18/18 06:36 Dose: 100 mls/hr Lactobacillus Acidophilus (Bacid Acidophilus) 1 cap PO BID [facility] Last Admin: 07/17/18 17:37 Dose: 1 cap Metoprolol Succinate (Toprol Xl) 100 mg PO DAILY [facility] Last Admin: 07/17/18 10:43 Dose: 100 mg Morphine Sulfate (Morphine) 1 mg IVP Q4H PRN PRN Reason: Pain, severe (8-10) Pantoprazole Sodium (Protonix Ec Tab) 40 mg PO 0600 [facility] Last Admin: 07/18/18 06:36 Dose: 40 mg Sertraline HCl (Zoloft) 50 mg PO DAILY [facility] Last Admin: 07/17/18 10:43 Dose: 50 mg Trazodone HCl (Desyrel) 50 mg PO HS PRN PRN Reason: Sedation Last Admin: 07/17/18 23:06 Dose: 50 mg Warfarin Sodium (Coumadin) 5 mg PO 1800 [facility] PRN Reason: Protocol Last Admin: 07/17/18 17:38 Dose: 5 mg - Labs Labs: 07/18/18 06:00 07/18/18 06:00 PT 23.6 SECONDS (9.4-12.5) H 07/17/18 06:30 INR 2.02 07/17/18 06:30 APTT 38.7 Seconds (25.1-36.5) H 07/15/18 06:20 Attending/Attestation - Attestation I have personally seen and examined this patient.: Yes I have fully participated in the care of the patient.: Yes I have reviewed all pertinent clinical information, including history, physical exam and plan: Yes Notes (Text): 07/18/18 07:35 Attending note; Patient seen and examined with resident. Patient is a 77 year old Female with PMH of Aortic aneurysm s/p Aortic valve replacement in 11/2016 (on Warfarin), CVA in 2011, cataracts, anemia, HTN, GERD who presents with right wrist swelling s/p mechanical fall. Patient found to have right acute transverse nondisplaced impacted fracture in the distal radius and non displaced fracture in the styloid process of the ulna with possible cellulitis. Closed reduction was done in the ER and cast was placed. Patient was seen and examined by orthopedics Dr. moncada. Currently to observe till the swelling subsides. Possible closed reduction in the OR early next week. Cellulitis; continue IV cefazolin. History of aortic valve replacement. History of atrial fibrillation. Currently on Coumadin. INR is therapeutic. Cardiology evaluation requested. Patient is clinically stable. Upon discharge the patient will follow-up with Dr. Douglass.
--- NOTE | 2018-07-16 15:01 | CARD ---
APPROVED REPORT Date of service: 07/16/2018 EKG Measurement Heart [id number] <Conclusion> Atrial fibrillation ST & T wave abnormality, consider anterior ischemia or digitalis effect Abnormal ECG
--- NOTE | 2018-07-16 15:56 | RAD ---
Date of service: 07/16/2018 HISTORY: PREOP COMPARISON: Comparison chest 12/30/2017 FINDINGS: LUNGS: Hyperinflation with increased coarsened interstitial markings. Findings suggest underlying interstitial disease. There is slight blunting right CP angle which could be due to pleural thickening and/or small effusion. Re- demonstrated are metallic surgical clips in the left hilar region unchanged PLEURA: No significant pleural effusion identified, no pneumothorax apparent. CARDIOVASCULAR: Marked cardiomegaly. . OSSEOUS STRUCTURES: No significant abnormalities. VISUALIZED UPPER ABDOMEN: Normal. OTHER FINDINGS: None. IMPRESSION: Hyperinflation with increased coarsened interstitial markings. Findings suggest underlying interstitial disease. There is slight blunting right CP angle which could be due to pleural thickening and/or small effusion. Re- demonstrated are metallic surgical clips in the left hilar region unchanged
--- NOTE | 2018-07-16 22:31 | CARD ---
APPROVED REPORT Date of service: 07/16/2018 EXAM: Two-dimensional and M-mode echocardiogram with Doppler and color Doppler. INDICATION PREOP 2D DIMENSIONS Left Atrium (2D)5.3 (1.6-4.0cm)IVSd1.5 (0.7-1.1cm) LVDd4.0 (3.9-5.9cm)PWd1.6 (0.7-1.1cm) LVDs2.8 (2.5-4.0cm)FS (%) 30.7 % LVEF (%)58.8 (>50%) M-Mode DIMENSIONS Aortic Root3.00 (2.2-3.7cm)Aortic Cusp Exc.1.70 (1.5-2.0cm) Aortic Valve AoV Peak Hqkccvjb050.0cm/Aydin Peak GR.15mmHg Mitral Valve MV E Umztjvll096.0cm/sMV E Peak Gr.159mmHg TDI Lateral E' Peak V9.46cm/sMedial E' Peak V7.41cm/sE/Lateral E'13.8 E/Medial E'17.7 Tricuspid Valve TR Peak [id number]/sRAP [id number] Peak Gr.76mmHg [id number] LEFT VENTRICLE The left ventricle is normal size. There is mild to moderate concentric left ventricular hypertrophy. The left ventricular function is normal.EF-55% There is normal LV segmental wall motion. A fib No left ventricle thrombus noted on this study. There is no ventricular septal defect visualized. There is no left ventricular aneurysm. There is no mass noted in the left ventricle. RIGHT VENTRICLE The right ventricle is severely dilated. There is normal right ventricular wall thickness. Systolic function of RV is moderately to severely reduced. ATRIA The left atrium is moderately dilated. The right atrium is moderately dilated. The interatrial septum is intact with no evidence for an atrial septal defect. AORTIC VALVE There is a bioprosthetic aortic valve prosthesis. The prosthetic aortic valve appears normal. MITRAL VALVE The mitral valve is moderately thickened. Mitral regurgitation is mild to moderate.. There is no mitral valve stenosis. There is no evidence of mitral valve prolapse. TRICUSPID VALVE There is moderate tricuspid regurgitation.RVSP-86 mmof Hg. There is severe pulmonary hypertension. S/p Trucuspid Repair PULMONIC VALVE The pulmonic valve is borderline thickened. There is mild pulmonic valvular regurgitation. There is no pulmonic valvular stenosis. GREAT VESSELS The aortic root is normal in size. The ascending aorta is normal in size. The pulmonary artery is normal. The IVC is dilated. PERICARDIAL EFFUSION There is no pleural effusion. There is no pericardial effusion. <Conclusion> The left ventricle is normal size. There is mild to moderate concentric left ventricular hypertrophy. The left ventricular function is normal.EF-55% The right ventricle is severely dilated. Systolic function of RV is moderately to severely reduced. There is a bioprosthetic aortic valve prosthesis. The prosthetic aortic valve appears normal. Mitral regurgitation is mild to moderate.. S/p Trucuspid Repair There is moderate tricuspid regurgitation.RVSP-86 mmof Hg. There is severe pulmonary hypertension. The IVC is dilated. There is no pericardial effusion. No vegetation noted.
[2018-07-17] MEDS: Pantoprazole 40 mg EC Tab PO SCH (06:48)
[2018-07-17] MEDS: ceFAZolin 1 gm in NS 1 GM/100 ML BAG IVPB SCH ×3 (06:48→21:12)
[2018-07-17 07:35] LABS: INR 2.02; PROTHROMBIN TIME 23.6 SECONDS (9.4-12.5)
[2018-07-17 07:38] LABS: BASO # 0.03 K/mm3 (0.0-2.0); BASO % 0.5 % (0.0-3.0); EOS # 0.4 (0.0-0.7); EOS % 6.1 % (1.5-5.0); GRAN # 3.28 (1.4-6.5); GRAN % 53.7 % (50.0-68.0); HEMOGLOBIN 11.2 g/dL (12.0-16.0); LYMPH # 1.7 (1.2-3.4); LYMPH % 27.7 % (22.0-35.0); MEAN CELL VOLUME 82.4 fl (80.0-105.0); MEAN CORPUSCULAR HEMOGLOBIN 26.6 pg (25.0-35.0); MEAN CORPUSCULAR HGB CONC 32.3 g/dl (31.0-37.0); MEAN PLATELET VOLUME 9.3 fl (7.0-11.0); MONO # 0.7 (0.1-0.6); RBC 4.21 10^6/uL (3.5-6.1); RED CELL DISTRIBUTION WIDTH 15.4 % (11.5-14.5); WHITE BLOOD COUNT 6.1 10^3/ul (4.5-11.0)
[2018-07-17 07:50] LABS: ALB/GLOB RATIO 1.1 (1.1-1.8); ALBUMIN 3.2 g/dL (3.0-4.8); ALT/SGPT 24 U/L (7-56); AST/SGOT 24 U/L (14-36); BLOOD UREA NITROGEN 13 mg/dL (7-21); CALCIUM 8.6 mg/dL (8.4-10.5); GFR AFRICAN-AMERICAN > 60; GFR NON-AFRICAN AMERICAN > 60
--- NOTE | 2018-07-17 10:06 | CP.PCM.PN ---
<Demetrio Arias - Last Filed: 07/17/18 16:02> Subjective - Date & Time of Evaluation Date of Evaluation: 07/17/18 Time of Evaluation: 06:23 - Subjective Subjective: Patient seen and examined at bedside. No significant overnight events. Right hand swelling is decreasing. Pain is well controlled with meds. She is ambulating in her room, has good appetite, regular bowel movements . Patient denied chest pain, fever, chills, SOB, headache, dizziness, palpitations. Patient is waiting for closed reduction of her right wrist fracture. Objective - Vital Signs/Intake and Output Vital Signs (last 24 hours): Temp Pulse Resp BP Pulse Ox 98.3 F 60 20 157/62 H 95 07/16/18 22:00 07/16/18 22:00 07/16/18 22:00 07/16/18 22:00 07/16/18 22:00 Intake and Output: 07/17/18 07/17/18 06:59 18:59 Intake Total 660 Balance 660 - Medications Medications: Current Medications Atorvastatin Calcium (Lipitor) 20 mg PO DIN [facility] Last Admin: 07/16/18 17:35 Dose: 20 mg Cefazolin Sodium (Ancef 1gm In Ns) 1 gm in 100 mls @ 100 mls/hr IVPB Q8 [facility] PRN Reason: Protocol Last Admin: 07/17/18 06:48 Dose: 100 mls/hr Lactobacillus Acidophilus (Bacid Acidophilus) 1 cap PO BID [facility] Last Admin: 07/16/18 17:35 Dose: 1 cap Metoprolol Succinate (Toprol Xl) 100 mg PO DAILY [facility] Last Admin: 07/16/18 09:14 Dose: 100 mg Morphine Sulfate (Morphine) 1 mg IVP Q4H PRN PRN Reason: Pain, severe (8-10) Pantoprazole Sodium (Protonix Ec Tab) 40 mg PO 0600 [facility] Last Admin: 07/17/18 06:48 Dose: 40 mg Sertraline HCl (Zoloft) 50 mg PO DAILY [facility] Last Admin: 07/16/18 09:14 Dose: 50 mg Trazodone HCl (Desyrel) 50 mg PO HS PRN PRN Reason: Sedation Last Admin: 07/17/18 00:58 Dose: 50 mg Warfarin Sodium (Coumadin) 5 mg PO 1800 [facility] PRN Reason: Protocol - Labs Labs: 07/17/18 06:30 07/17/18 06:30 PT 23.6 SECONDS (9.4-12.5) H 07/17/18 06:30 INR 2.02 07/17/18 06:30 APTT 38.7 Seconds (25.1-36.5) H 07/15/18 06:20 - Constitutional Appears: Well, No Acute Distress - Head Exam Head Exam: ATRAUMATIC, NORMAL INSPECTION, NORMOCEPHALIC - Eye Exam Eye Exam: EOMI, Normal appearance, PERRL Pupil Exam: NORMAL ACCOMODATION, PERRL - ENT Exam ENT Exam: Mucous Membranes Moist, Normal Exam - Neck Exam Neck Exam: Full ROM, Normal Inspection. absent: Lymphadenopathy - Respiratory Exam Respiratory Exam: Clear to Ausculation Bilateral, NORMAL BREATHING PATTERN - Cardiovascular Exam Cardiovascular Exam: Irregular Rhythm, +S1, +S2, Murmur - GI/Abdominal Exam GI & Abdominal Exam: Soft, Normal Bowel Sounds. absent: Tenderness - Rectal Exam Rectal Exam: Deferred - Extremities Exam Extremities Exam: Normal Capillary Refill Additional comments: Right arm: right wrist splint. right hand edema, numbness on right thumb. normal color, no erythema, no skin changes on fingers, intact sensation and motor function. - Back Exam Back Exam: NORMAL INSPECTION - Neurological Exam Neurological Exam: Alert, Awake, CN II-XII Intact, Normal Gait, Oriented x3 - Psychiatric Exam Psychiatric exam: Normal Affect, Normal Mood - Skin Skin Exam: Erythema (right hand) Assessment and Plan - Assessment and Plan (Free Text) Assessment: 77 y/o Female with PMH of Aortic aneurysm s/p Aortic valve replacement, CVA in 2011, cataracts, anemia, HTN, GERD who presents with right wrist swelling s/p mechanical fall. Patient found to have right acute transverse non-displaced impacted fracture in the distal radius and non displaced fracture in the styloid process of the ulna with possible cellulitis. Plan: S/P closed reduction of right distal radial fracture with possible cellulitis - Hand x-ray S/P closed reduction shows improved alignment of fracture fragments in lateral projection - Elbow x-ray no fx or dislocation - Per ID consult: Patient is afebrile without leukocytosis, no SIRS. patient on cefazolin - Wound cultures and blood cultures, no growth to date - Patient is scheduled for othropedic surgery on Wednesday as per Dr Carmen - Keep hand elevated, f/u pulses q1 - Morphine 2 mg q4 prn for pain - Blood cx. negative after 24 hr - CT head negative - CT upper extremity done. read pending H/O atrial fibrilation - EKG shows afib - Warfarin 5 mg will be resumed tonight - INR 2.02. continue to monitor Mitral valve proplase s/p aortic valve replacement - Pre-op cardiac clearance as per surgery. - CXR: hyperinflation with coarsened interstitial marking suggistive with interstitial disease. Slight blunting of CP angle - Echo: LV normal size and function. EF 55%. RV severly dilated. RV Systolic function severely reduced HTN - c/w home med toprol xl HLD - continue home med lipitor Depression - continue home meds zoloft, trazodone -GI ppx Protonix -DVT ppx SCD -Heart healthy diet -Fall precautions Case reviewed and discussed with Teresa Herbert <Whit Herbert - Last Filed: 07/18/18 13:48> Objective - Vital Signs/Intake and Output Vital Signs (last 24 hours): Temp Pulse Resp BP Pulse Ox 97.7 F 58 L 18 130/62 96 07/18/18 07:51 07/18/18 07:51 07/18/18 07:51 07/18/18 09:11 07/18/18 07:51 Intake and Output: 07/18/18 07/18/18 06:59 18:59 Intake Total 1080 Balance 1080 - Medications Medications: Current Medications Atorvastatin Calcium (Lipitor) 20 mg PO DIN [facility] Last Admin: 07/17/18 17:38 Dose: 20 mg Enoxaparin Sodium (Lovenox) 70 mg SC Q12H [facility] PRN Reason: Protocol Cefazolin Sodium (Ancef 1gm In Ns) 1 gm in 100 mls @ 100 mls/hr IVPB Q8 [facility] PRN Reason: Protocol Last Admin: 07/18/18 06:36 Dose: 100 mls/hr Lactobacillus Acidophilus (Bacid Acidophilus) 1 cap PO BID [facility] Last Admin: 07/18/18 09:10 Dose: 1 cap Metoprolol Succinate (Toprol Xl) 100 mg PO DAILY [facility] Last Admin: 07/18/18 09:11 Dose: 100 mg Morphine Sulfate (Morphine) 1 mg IVP Q4H PRN PRN Reason: Pain, severe (8-10) Pantoprazole Sodium (Protonix Ec Tab) 40 mg PO 0600 [facility] Last Admin: 07/18/18 06:36 Dose: 40 mg Sertraline HCl (Zoloft) 50 mg PO DAILY [facility] Last Admin: 07/18/18 09:11 Dose: 50 mg Trazodone HCl (Desyrel) 50 mg PO HS PRN PRN Reason: Sedation Last Admin: 07/17/18 23:06 Dose: 50 mg Warfarin Sodium (Coumadin) 5 mg PO 1800 [facility] PRN Reason: Protocol Last Admin: 07/17/18 17:38 Dose: 5 mg - Labs Labs: 07/18/18 06:00 07/18/18 06:00 PT 18.8 SECONDS (9.4-12.5) H 07/18/18 08:35 INR 1.62 07/18/18 08:35 APTT 38.7 Seconds (25.1-36.5) H 07/15/18 06:20 Attending/Attestation - Attestation I have personally seen and examined this patient.: Yes I have fully participated in the care of the patient.: Yes I have reviewed all pertinent clinical information, including history, physical exam and plan: Yes Notes (Text): 07/18/18 13:43 Attending note; Patient seen and examined with resident. Patient is a 77 year old Female with PMH of Aortic aneurysm s/p Aortic valve replacement in 11/2016 (on Warfarin), CVA in 2011, cataracts, anemia, HTN, GERD who presents with right wrist swelling s/p mechanical fall. Patient found to have right acute transverse nondisplaced impacted fracture in the distal radius and non displaced fracture in the styloid process of the ulna with possible cellulitis. Closed reduction was done in the ER and cast was placed. Patient was seen and examined by orthopedics Dr. moncada. Possible closed reduction vs open reduction in the OR early next week. Cellulitis; continue IV cefazolin. History of aortic valve replacement. History of atrial fibrillation. Currently on Coumadin. Cardiology evaluation appreciated. switch to sc lovenox till surgery. restart coumadin after surgery. Patient is clinically stable. Upon discharge the patient will follow-up with Dr. Douglass.
[2018-07-17] MEDS: Lactobacillus Acidophilus 500 MU Cap PO SCH ×2 (10:42→17:37)
[2018-07-17] MEDS: Metoprolol Succinate 100 mg XL Tab PO SCH (10:43)
--- NOTE | 2018-07-17 11:18 | CARD ---
APPROVED REPORT Date of service: 07/17/2018 EKG Measurement Heart [id number] <Conclusion> Atrial fibrillation Nonspecific ST abnormality, probably digitalis effect Abnormal ECG
--- NOTE | 2018-07-17 12:46 | PN ---
Copied To: Wes Rose MD Attending MD: Wes Rose MD DATE: 07/17/2018 SUBJECTIVE: The patient is in bed, in no acute distress, nontoxic. PHYSICAL EXAMINATION: VITAL SIGNS: On exam, temperature is 98, blood pressure is 150/60, respiratory rate of 18. HEENT: Examination of HEENT is unremarkable. NECK: Supple. LUNGS: Have decreased breath sounds. HEART: Normal S1, S2. ABDOMEN: Soft, nontender. LABORATORY DATA: Laboratory examination reveals a white count of 6.1, hemoglobin of 11, platelets of 208. Chemistries reveals a BUN of 13, creatinine of 0.7. Microbiology reveals the patient to have blood cultures are negative. Wound cultures are pending. Review of orders revealed the patient to be on cefazolin. ASSESSMENT AND PLAN: A 77-year-old female, seen earlier today in 564, bed 2 with aortic aneurysm, aortic valve replacement in 2017, cerebrovascular accident, cataracts with a right status post mechanical fall with a right distal arm fracture and associated cellulitis. Negative blood cultures. No fevers. Normal white count. Blood cultures are negative so far. In cefazolin, day #3. We will check on the CAT scan of the upper extremity with the results are pending. Wes Rose MD
--- NOTE | 2018-07-17 14:10 | CON ---
Copied To: Ryan Escobedo MD Attending MD: Ryan Escobedo MD DATE: 07/17/2018 CONSULTATION INDICATIONS: Preop, status post fall with right wrist fracture. HISTORY: This is a 77-year-old woman known to our practice, admitted on 07/14/2018 after mechanical fall in which she fell and fractured her right wrist. She states that she turned suddenly to talk to a neighbor and fell on concrete. There was a cellulitic area onthe right wrist as well. She has a splint. Surgery is planned although the date is not set. It sounds as if it will be semi-elective due to swelling. There was no chest pain, shortness of breath, orthopnea, PND, syncope, presyncope, lightheadedness, dizziness, vertigo, palpitations, fever, chills, cough, sputum production, hemoptysis, abdominal pain, nausea, vomiting, diarrhea, constipation, melena. She has a history of the aortic valve replacement with proximal aortic root repair and tricuspid valvuloplasty. She had severe AI with an aortic aneurysm. She has a history of atrial fibrillation, on warfarin; hypertension; hyperlipidemia; stroke; cataracts; anemia and GERD. MEDICATIONS AT TIME OF ADMISSION: Include warfarin, trazodone, Fosamax, Pravachol, Protonix, metoprolol, Zoloft. ALLERGIES: SHE NOTES ALLERGIES TO SULFA, INTOLERANCE TO BETA BLOCKERS AND BONIVA. SOCIAL HISTORY: She is . She lives at home. She is ambulatory. She does not smoke. She drinks alcohol on rare occasions. FAMILY HISTORY: Notable for heart disease and cancer. REVIEW OF SYSTEMS: A 10-point review of systems otherwise unremarkable except as noted above. PHYSICAL EXAMINATION: GENERAL: She is a well-developed elderly woman lying in bed on 5R, in no acute distress. VITAL SIGNS: Pulse is 60, afebrile, 157/62, respirations 20, O2 sat 95% on room air. HEENT: Exam reveals no neck vein distention, thyromegaly, carotid bruits. Mucous membranes moist. Conjunctiva pink. NECK: Supple. LUNGS: Lung youssef clear. HEART: Revealed normal first and second heart sound. There is soft systolic murmur along the left sternal border. ABDOMEN: Soft. Bowel sounds present. No mass, organomegaly, tenderness, rebound or guarding. No CVA tenderness. No palpable abdominal aortic aneurysm. EXTREMITIES: Revealed no cyanosis, clubbing or edema. NEUROLOGIC: Awake, alert and oriented. PSYCHIATRIC: Normal as to mood and affect. SKIN: Warm and dry. No rash or cellulitis. The right wrist is in a splint. LABORATORY AND IMAGING: EKG demonstrates atrial fibrillation, poor R-wave progression, LVH, ST-T wave changes consistent with ischemia. No change from a prior EKG. A right hand x-ray reveals no acute fracture. A CT of the head reveals no acute intracranial abnormalities. A right wrist x-ray reveals acute fracture, see details. A right elbow x-ray reveals no fracture and upper extremity CT is pending. An echocardiogram is noted. Normal LV size and function, dilated right ventricle with reduced systolic function, perhaps over-read. The prosthetic valve appeared normal. There is [id number] MR, a tricuspid annuloplasty, moderate tricuspid regurgitation, severe pulmonary hypertension. The chest x-ray revealed hyperinflation and coarse interstitial markings, see report. White counts are normal. Hemoglobin 11.2, hematocrit 34.7, platelet count normal. PT/INR, PTT consistent with warfarin therapy. Today's INR is 2.02 with a PT of 23.6. Electrolytes, BUN, creatinine, blood sugar LFTs all normal. TSH normal. IMPRESSION: Tracy De La Rosa is a 77-year-old woman with a mechanical fall and right wrist fracture with an abraded area in the skin, possible cellulitis or irritation from a medical alert bracelet at the time of fall with a cardiac history including thoracic aortic aneurysm repair with aortic valve replacement and tricuspid valvuloplasty. She has chronic atrial fibrillation, on Coumadin with therapeutic levels. At this time, I await Orthopedics decision with regard to surgery. Prior to surgery, we will hold warfarin and bridge with Lovenox. She should be considered [id number] increased cardiac risk because of underlying cardiac issues. There is no absolute contraindication however. Metoprolol should be continued throughout the perioperative period. Infectious Disease is following her. Blood cultures are negative so far at 48 hours. I will follow along with you and make additional recommendations based on her clinical course. Ryan Escobedo MD [facility] # [id number] MTDD
--- NOTE | 2018-07-18 06:18 | CP.PCM.PN ---
<Demetrio Arias - Last Filed: 07/18/18 15:08> Subjective - Date & Time of Evaluation Date of Evaluation: 07/18/18 Time of Evaluation: 05:50 - Subjective Subjective: Patient seen and examined at bedside. No significant overnight events. Right hand swelling is improving. Pain is well controlled with meds. She can ambulate in her room. Patient denied chest pain, fever, chills, SOB, headache, dizziness , palpitations. Patient is waiting for closed reduction of her right wrist fracture. Objective - Vital Signs/Intake and Output Vital Signs (last 24 hours): Temp Pulse Resp BP Pulse Ox 97.6 F 61 20 126/54 L 95 07/17/18 21:47 07/17/18 21:47 07/17/18 21:47 07/17/18 21:47 07/17/18 21:47 Intake and Output: 07/17/18 07/18/18 18:59 06:59 Intake Total 1080 Balance 1080 - Medications Medications: Current Medications Atorvastatin Calcium (Lipitor) 20 mg PO DIN [facility] Last Admin: 07/17/18 17:38 Dose: 20 mg Cefazolin Sodium (Ancef 1gm In Ns) 1 gm in 100 mls @ 100 mls/hr IVPB Q8 [facility] PRN Reason: Protocol Last Admin: 07/17/18 21:12 Dose: 100 mls/hr Lactobacillus Acidophilus (Bacid Acidophilus) 1 cap PO BID [facility] Last Admin: 07/17/18 17:37 Dose: 1 cap Metoprolol Succinate (Toprol Xl) 100 mg PO DAILY [facility] Last Admin: 07/17/18 10:43 Dose: 100 mg Morphine Sulfate (Morphine) 1 mg IVP Q4H PRN PRN Reason: Pain, severe (8-10) Pantoprazole Sodium (Protonix Ec Tab) 40 mg PO 0600 [facility] Last Admin: 07/17/18 06:48 Dose: 40 mg Sertraline HCl (Zoloft) 50 mg PO DAILY [facility] Last Admin: 07/17/18 10:43 Dose: 50 mg Trazodone HCl (Desyrel) 50 mg PO HS PRN PRN Reason: Sedation Last Admin: 07/17/18 23:06 Dose: 50 mg Warfarin Sodium (Coumadin) 5 mg PO 1800 [facility] PRN Reason: Protocol Last Admin: 07/17/18 17:38 Dose: 5 mg - Labs Labs: 07/17/18 06:30 07/17/18 06:30 PT 23.6 SECONDS (9.4-12.5) H 07/17/18 06:30 INR 2.02 07/17/18 06:30 APTT 38.7 Seconds (25.1-36.5) H 07/15/18 06:20 - Constitutional Appears: Well, No Acute Distress - Head Exam Head Exam: ATRAUMATIC, NORMAL INSPECTION, NORMOCEPHALIC - Eye Exam Eye Exam: EOMI, Normal appearance, PERRL Pupil Exam: NORMAL ACCOMODATION, PERRL - ENT Exam ENT Exam: Mucous Membranes Moist, Normal Exam - Neck Exam Neck Exam: Full ROM, Normal Inspection. absent: Lymphadenopathy - Respiratory Exam Respiratory Exam: Clear to Ausculation Bilateral, NORMAL BREATHING PATTERN - Cardiovascular Exam Cardiovascular Exam: Irregular Rhythm, +S1, +S2, Murmur (systolic murmur) - GI/Abdominal Exam GI & Abdominal Exam: Soft, Normal Bowel Sounds. absent: Tenderness - Rectal Exam Rectal Exam: Deferred - Extremities Exam Extremities Exam: Full ROM, Normal Capillary Refill, Normal Inspection. absent : Joint Swelling, Pedal Edema Additional comments: splint on right right forearm and wrist. improving right hand swelling can move right fingers. sensation intact no color changes - Back Exam Back Exam: NORMAL INSPECTION - Neurological Exam Neurological Exam: Alert, Awake, CN II-XII Intact, Normal Gait, Oriented x3 - Psychiatric Exam Psychiatric exam: Normal Affect, Normal Mood - Skin Skin Exam: Dry, Intact, Normal Color, Warm Additional comments: misternal scar Assessment and Plan - Assessment and Plan (Free Text) Assessment: 77 y/o Female with PMH of Aortic aneurysm s/p Aortic valve replacement, CVA in 2011, cataracts, anemia, HTN, GERD who presents with right wrist swelling s/p mechanical fall. Patient found to have right acute transverse non-displaced impacted fracture in the distal radius and non displaced fracture in the styloid process of the ulna. Scheduled for closed reduction orthopedic surgery on Wednesday. Plan: S/P closed reduction of right distal radial fracture - CT upper extremity: comminuted fracture of distal radius extending to articular surface. impacted fx, no significant angulation. fracture of of ulnar styloid. - Patient is scheduled for orthopedic surgery on Wednesday as per Dr Carmen - Hand x-ray S/P closed reduction shows improved alignment of fracture fragments in lateral projection - Per ID consult: Patient is afebrile without leukocytosis, no SIRS. patient on cefazolin - Wound cultures and blood cultures, no growth to date - Keep hand elevated, f/u pulses - Morphine 2 mg q4 prn for pain - CT head negative H/O atrial fibrilation - EKG shows afib - Warfarin held - Lovenox q12h - INR 1.62 today Mitral valve proplase s/p aortic valve replacement - Pre-op cardiac clearance as per surgery. - CXR: hyperinflation with coarsened interstitial marking suggistive with interstitial disease. Slight blunting of CP angle - Echo: LV normal size and function. EF 55%. RV severly dilated. RV Systolic function severely reduced HTN - c/w home med toprol xl HLD - continue home med lipitor Depression - continue home meds zoloft, trazodone -GI ppx Protonix -DVT ppx SCD -Heart healthy diet -Fall precautions Case reviewed and discussed with Teresa Herbert <Whit Herbert - Last Filed: 07/18/18 18:27> Objective - Vital Signs/Intake and Output Vital Signs (last 24 hours): Temp Pulse Resp BP Pulse Ox 97.7 F 58 L 18 130/62 96 07/18/18 07:51 07/18/18 07:51 07/18/18 07:51 07/18/18 09:11 07/18/18 07:51 Intake and Output: 07/18/18 07/18/18 06:59 18:59 Intake Total 1080 Balance 1080 - Medications Medications: Current Medications Atorvastatin Calcium (Lipitor) 20 mg PO DIN [facility] Last Admin: 07/18/18 18:15 Dose: 20 mg Enoxaparin Sodium (Lovenox) 70 mg SC Q12H [facility] PRN Reason: Protocol Last Admin: 07/18/18 15:23 Dose: 70 mg Cefazolin Sodium (Ancef 1gm In Ns) 1 gm in 100 mls @ 100 mls/hr IVPB Q8 [facility] PRN Reason: Protocol Last Admin: 07/18/18 15:20 Dose: 100 mls/hr Lactobacillus Acidophilus (Bacid Acidophilus) 1 cap PO BID [facility] Last Admin: 07/18/18 18:15 Dose: 1 cap Metoprolol Succinate (Toprol Xl) 100 mg PO DAILY [facility] Last Admin: 07/18/18 09:11 Dose: 100 mg Morphine Sulfate (Morphine) 1 mg IVP Q4H PRN PRN Reason: Pain, severe (8-10) Pantoprazole Sodium (Protonix Ec Tab) 40 mg PO 0600 [facility] Last Admin: 07/18/18 06:36 Dose: 40 mg Sertraline HCl (Zoloft) 50 mg PO DAILY [facility] Last Admin: 07/18/18 09:11 Dose: 50 mg Trazodone HCl (Desyrel) 50 mg PO HS PRN PRN Reason: Sedation Last Admin: 07/17/18 23:06 Dose: 50 mg Warfarin Sodium (Coumadin) 5 mg PO 1800 [facility] PRN Reason: Protocol Last Admin: 07/17/18 17:38 Dose: 5 mg - Labs Labs: 07/18/18 06:00 07/18/18 06:00 PT 18.8 SECONDS (9.4-12.5) H 07/18/18 08:35 INR 1.62 07/18/18 08:35 APTT 38.7 Seconds (25.1-36.5) H 07/15/18 06:20 Attending/Attestation - Attestation I have personally seen and examined this patient.: Yes I have fully participated in the care of the patient.: Yes I have reviewed all pertinent clinical information, including history, physical exam and plan: Yes Notes (Text): 07/18/18 18:25 Attending note; Patient seen and examined with resident. Right hand swelling is improving. Splints changed by orthopedics today. Able to move his fingers. Patient is a 77 year old Female with PMH of Aortic aneurysm s/p Aortic valve replacement in 11/2016 (on Warfarin), CVA in 2011, cataracts, anemia, HTN, GERD who presents with right wrist swelling s/p mechanical fall. Patient found to have right acute transverse nondisplaced impacted fracture in the distal radius and non displaced fracture in the styloid process of the ulna with possible cellulitis. Closed reduction was done in the ER and cast was placed. Patient was seen and examined by orthopedics Dr. moncada. Possible closed reduction vs open reduction in the OR tomorrow. Cellulitis; continue IV cefazolin. History of aortic valve replacement. History of atrial fibrillation. Currently Coumadin on hold. Started on Lovenox. Cardiology evaluation appreciated. Patient is clinically stable for procedure tomorrow. Upon discharge the patient will follow-up with Dr. Douglass.
[2018-07-18 06:25] LABS: BASO # 0.03 K/mm3 (0.0-2.0); BASO % 0.5 % (0.0-3.0); EOS # 0.3 (0.0-0.7); EOS % 4.9 % (1.5-5.0); GRAN # 3.42 (1.4-6.5); GRAN % 52.8 % (50.0-68.0); HEMOGLOBIN 11.2 g/dL (12.0-16.0); LYMPH # 2.1 (1.2-3.4); LYMPH % 31.8 % (22.0-35.0); MEAN CELL VOLUME 83.5 fl (80.0-105.0); MEAN CORPUSCULAR HEMOGLOBIN 27.3 pg (25.0-35.0); MEAN CORPUSCULAR HGB CONC 32.7 g/dl (31.0-37.0); MEAN PLATELET VOLUME 9.5 fl (7.0-11.0); MONO # 0.7 (0.1-0.6); RBC 4.11 10^6/uL (3.5-6.1); RED CELL DISTRIBUTION WIDTH 15.5 % (11.5-14.5); WHITE BLOOD COUNT 6.5 10^3/ul (4.5-11.0)
[2018-07-18] MEDS: Pantoprazole 40 mg EC Tab PO SCH (06:36)
[2018-07-18] MEDS: ceFAZolin 1 gm in NS 1 GM/100 ML BAG IVPB SCH ×3 (06:36→22:06)
[2018-07-18 07:08] LABS: ALBUMIN 3.2 g/dL (3.0-4.8); ALT/SGPT 23 U/L (7-56); AST/SGOT 23 U/L (14-36); BLOOD UREA NITROGEN 16 mg/dL (7-21); CALCIUM 8.8 mg/dL (8.4-10.5); GFR AFRICAN-AMERICAN > 60; GFR NON-AFRICAN AMERICAN > 60
--- NOTE | 2018-07-18 08:21 | PN ---
Copied To: Bruce Singh DO Attending MD: Bruce Singh DO DATE: 07/16/2018 LOCATION: Room 564, bed 2. This is a 77-year-old female. She presented with displaced right distal radius fracture and she was inadequately reduced in the Emergency Room when she came in on 07/14/2018 and she has still quite swelling because of the attempted reduction and the initial injury. My plan is to take the cast off and do reduction at this time in the operating room where I get adequate anesthesia so she does not feel it and have x-rays right at my side and hopefully like to get away without doing any surgical intervention, like to get a good reduction with the anesthesia, I could put in a well-molded cast because some of the swelling will be down because she is on anticoagulation be safer to fix her wrist by closed reduction and application of a cast. Because she does live alone and the surgical incision has a chance of get infected, it will get contaminated with debris at the house. So hopefully I could get a cardiac clearance by Dr. Ibarra and Dr. Escobedo and do a procedure this Wednesday with some anesthesia and do a reduction under anesthesia and a x-ray and there is always a chance that she may need external fixator, but I will try to stay away from a formal ORIF. Bruce Singh DO
--- NOTE | 2018-07-18 08:26 | CP.PCM.PN ---
Subjective - Date & Time of Evaluation Date of Evaluation: 07/18/18 Time of Evaluation: 07:00 - Subjective Subjective: Stable on 5R. She feels OK. NO CP or SOB. V/S noted. PE: Lungs: clear Cor.: S1S1, sys murmur Abd.: soft Ext.: no edema Neuro.: alert Labs noted. CBC, CMP OK. INR pending. Objective - Vital Signs/Intake and Output Vital Signs (last 24 hours): Temp Pulse Resp BP Pulse Ox 97.7 F 58 L 18 128/57 L 96 07/18/18 07:51 07/18/18 07:51 07/18/18 07:51 07/18/18 07:51 07/18/18 07:51 Intake and Output: 07/18/18 07/18/18 06:59 18:59 Intake Total 1080 Balance 1080 - Medications Medications: Current Medications Atorvastatin Calcium (Lipitor) 20 mg PO DIN [facility] Last Admin: 07/17/18 17:38 Dose: 20 mg Cefazolin Sodium (Ancef 1gm In Ns) 1 gm in 100 mls @ 100 mls/hr IVPB Q8 [facility] PRN Reason: Protocol Last Admin: 07/18/18 06:36 Dose: 100 mls/hr Lactobacillus Acidophilus (Bacid Acidophilus) 1 cap PO BID [facility] Last Admin: 07/17/18 17:37 Dose: 1 cap Metoprolol Succinate (Toprol Xl) 100 mg PO DAILY [facility] Last Admin: 07/17/18 10:43 Dose: 100 mg Morphine Sulfate (Morphine) 1 mg IVP Q4H PRN PRN Reason: Pain, severe (8-10) Pantoprazole Sodium (Protonix Ec Tab) 40 mg PO 0600 [facility] Last Admin: 07/18/18 06:36 Dose: 40 mg Sertraline HCl (Zoloft) 50 mg PO DAILY [facility] Last Admin: 07/17/18 10:43 Dose: 50 mg Trazodone HCl (Desyrel) 50 mg PO HS PRN PRN Reason: Sedation Last Admin: 07/17/18 23:06 Dose: 50 mg Warfarin Sodium (Coumadin) 5 mg PO 1800 [facility] PRN Reason: Protocol Last Admin: 07/17/18 17:38 Dose: 5 mg - Labs Labs: 07/18/18 06:00 07/18/18 06:00 PT 23.6 SECONDS (9.4-12.5) H 07/17/18 06:30 INR 2.02 07/17/18 06:30 APTT 38.7 Seconds (25.1-36.5) H 07/15/18 06:20 Assessment and Plan - Assessment and Plan (Free Text) Assessment: Mechanical Fall with right wrist fracture H/O AVR with aortic root repair and TV annuloplasty Chronic AF on warfarin Echo: NL LV fx., Dilated RV, NL AVR, HBP HLD CVA Anemia GERD Cataract surgery Plan: Hold warfarin and monitor INRs for possible surgery soon. Bridge with Lovenox when INR < 1.8 Continue metoprolol on day of surgery Mild to moderate increased cardiac risk.
[2018-07-18 08:55] LABS: INR 1.62; PROTHROMBIN TIME 18.8 SECONDS (9.4-12.5)
[2018-07-18] MEDS: Lactobacillus Acidophilus 500 MU Cap PO SCH ×2 (09:10→18:15)
[2018-07-18] MEDS: Metoprolol Succinate 100 mg XL Tab PO SCH (09:11)
--- NOTE | 2018-07-18 13:25 | CT ---
Date of service: 07/16/2018 PROCEDURE: CT of the right wrist without contrast HISTORY: rt wrist fx displaced COMPARISON: TECHNIQUE: Radiation dose: Total exam DLP = 291 mGy-cm. This CT exam was performed using one or more of the following dose reduction techniques: Automated exposure control, adjustment of the mA and/or kV according to patient size, and/or use of iterative reconstruction technique. FINDINGS: There is a comminuted fracture of the distal radius extending into the articular surface. The fracture is impacted but not significantly angulated. There is also a fracture of the ulnar styloid. The report concurs with the preliminary [facility] report IMPRESSION: There is a comminuted fracture of the distal radius extending into the articular surface. The fracture is impacted but not significantly angulated. There is also a fracture of the ulnar styloid.
[2018-07-18] MEDS: Enoxaparin 80 mg Syringe SC SCH ×2 (15:23→23:18)
--- NOTE | 2018-07-18 19:58 | CP.PCM.PN ---
Subjective - Date & Time of Evaluation Date of Evaluation: 07/18/18 Time of Evaluation: 12:00 - Subjective Subjective: Eating her lunch well, no fevers, less pain on the right hand. Objective - Vital Signs/Intake and Output Vital Signs (last 24 hours): Temp Pulse Resp BP Pulse Ox 97.7 F 58 L 18 130/62 96 07/18/18 07:51 07/18/18 07:51 07/18/18 07:51 07/18/18 09:11 07/18/18 07:51 Intake and Output: 07/18/18 07/18/18 06:59 18:59 Intake Total 1080 Balance 1080 - Medications Medications: Current Medications Atorvastatin Calcium (Lipitor) 20 mg PO DIN [facility] Last Admin: 07/17/18 17:38 Dose: 20 mg Enoxaparin Sodium (Lovenox) 70 mg SC Q12H [facility] PRN Reason: Protocol Cefazolin Sodium (Ancef 1gm In Ns) 1 gm in 100 mls @ 100 mls/hr IVPB Q8 [facility] PRN Reason: Protocol Last Admin: 07/18/18 06:36 Dose: 100 mls/hr Lactobacillus Acidophilus (Bacid Acidophilus) 1 cap PO BID [facility] Last Admin: 07/18/18 09:10 Dose: 1 cap Metoprolol Succinate (Toprol Xl) 100 mg PO DAILY [facility] Last Admin: 07/18/18 09:11 Dose: 100 mg Morphine Sulfate (Morphine) 1 mg IVP Q4H PRN PRN Reason: Pain, severe (8-10) Pantoprazole Sodium (Protonix Ec Tab) 40 mg PO 0600 [facility] Last Admin: 07/18/18 06:36 Dose: 40 mg Sertraline HCl (Zoloft) 50 mg PO DAILY [facility] Last Admin: 07/18/18 09:11 Dose: 50 mg Trazodone HCl (Desyrel) 50 mg PO HS PRN PRN Reason: Sedation Last Admin: 07/17/18 23:06 Dose: 50 mg Warfarin Sodium (Coumadin) 5 mg PO 1800 [facility] PRN Reason: Protocol Last Admin: 07/17/18 17:38 Dose: 5 mg - Labs Labs: 07/18/18 06:00 07/18/18 06:00 PT 18.8 SECONDS (9.4-12.5) H 07/18/18 08:35 INR 1.62 07/18/18 08:35 APTT 38.7 Seconds (25.1-36.5) H 07/15/18 06:20 - Constitutional Appears: Chronically Ill - Head Exam Head Exam: NORMAL INSPECTION - ENT Exam ENT Exam: Mucous Membranes Moist - Neck Exam Neck Exam: absent: Meningismus - Respiratory Exam Respiratory Exam: Decreased Breath Sounds - Cardiovascular Exam Cardiovascular Exam: +S1, +S2 - GI/Abdominal Exam GI & Abdominal Exam: Soft. absent: Tenderness Assessment and Plan - Assessment and Plan (Free Text) Plan: Assessment right distal arm fracture with mild cellulitis aortic aneurysm S/P aortic valve replacement CVA cataracts chronic anemia HTN GERD Plan Continue Cefazolin day 4 - can switch to PO Keflex for another 5 days
--- NOTE | 2018-07-19 06:05 | CP.PCM.PN ---
Subjective - Date & Time of Evaluation Date of Evaluation: 07/19/18 Time of Evaluation: 05:40 Objective - Vital Signs/Intake and Output Vital Signs (last 24 hours): Temp Pulse Resp BP Pulse Ox 98.2 F 67 18 122/55 L 96 07/18/18 23:24 07/18/18 23:24 07/18/18 23:24 07/18/18 23:24 07/18/18 23:24 Intake and Output: 07/18/18 07/19/18 18:59 06:59 Intake Total 620 Balance 620 - Medications Medications: Current Medications Atorvastatin Calcium (Lipitor) 20 mg PO DIN [facility] Last Admin: 07/18/18 18:15 Dose: 20 mg Cefazolin Sodium (Ancef 1gm In Ns) 1 gm in 100 mls @ 100 mls/hr IVPB Q8 [facility] PRN Reason: Protocol Last Admin: 07/18/18 22:06 Dose: 100 mls/hr Lactobacillus Acidophilus (Bacid Acidophilus) 1 cap PO BID [facility] Last Admin: 07/18/18 18:15 Dose: 1 cap Metoprolol Succinate (Toprol Xl) 100 mg PO DAILY [facility] Last Admin: 07/18/18 09:11 Dose: 100 mg Morphine Sulfate (Morphine) 1 mg IVP Q4H PRN PRN Reason: Pain, severe (8-10) Pantoprazole Sodium (Protonix Ec Tab) 40 mg PO 0600 [facility] Last Admin: 07/18/18 06:36 Dose: 40 mg Sertraline HCl (Zoloft) 50 mg PO DAILY [facility] Last Admin: 07/18/18 09:11 Dose: 50 mg Trazodone HCl (Desyrel) 50 mg PO HS PRN PRN Reason: Sedation Last Admin: 07/18/18 23:23 Dose: 50 mg Warfarin Sodium (Coumadin) 5 mg PO 1800 [facility] PRN Reason: Protocol Last Admin: 07/17/18 17:38 Dose: 5 mg - Labs Labs: 07/18/18 06:00 07/18/18 06:00 PT 18.8 SECONDS (9.4-12.5) H 07/18/18 08:35 INR 1.62 07/18/18 08:35 APTT 38.7 Seconds (25.1-36.5) H 07/15/18 06:20
[2018-07-19] MEDS: Pantoprazole 40 mg EC Tab PO SCH (06:15)
[2018-07-19] MEDS: ceFAZolin 1 gm in NS 1 GM/100 ML BAG IVPB SCH ×2 (06:15→14:22)
[2018-07-19 07:26] LABS: BASO # 0.03 K/mm3 (0.0-2.0); BASO % 0.4 % (0.0-3.0); EOS # 0.4 (0.0-0.7); EOS % 5.7 % (1.5-5.0); GRAN # 3.4 (1.4-6.5); GRAN % 48.8 % (50.0-68.0); HEMOGLOBIN 11.2 g/dL (12.0-16.0); LYMPH # 2.5 (1.2-3.4); LYMPH % 36.3 % (22.0-35.0); MEAN CELL VOLUME 83.5 fl (80.0-105.0); MEAN CORPUSCULAR HEMOGLOBIN 26.7 pg (25.0-35.0); MEAN PLATELET VOLUME 9.8 fl (7.0-11.0); MONO # 0.6 (0.1-0.6); MONO % 8.8 % (1.0-6.0); RBC 4.19 10^6/uL (3.5-6.1); RED CELL DISTRIBUTION WIDTH 15.5 % (11.5-14.5)
[2018-07-19 07:29] LABS: INR 1.54; PROTHROMBIN TIME 17.9 SECONDS (9.4-12.5)
[2018-07-19 07:44] LABS: ALB/GLOB RATIO 1.1 (1.1-1.8); ALBUMIN 3.4 g/dL (3.0-4.8); ALT/SGPT 21 U/L (7-56); AST/SGOT 27 U/L (14-36); BLOOD UREA NITROGEN 18 mg/dL (7-21); CALCIUM 8.8 mg/dL (8.4-10.5); GFR AFRICAN-AMERICAN > 60; GFR NON-AFRICAN AMERICAN > 60
--- NOTE | 2018-07-19 08:05 | CP.PCM.PN ---
Subjective - Date & Time of Evaluation Date of Evaluation: 07/19/18 Time of Evaluation: 07:00 - Subjective Subjective: Stable on 5R. She feels OK. NO CP or SOB. V/S noted. PE: Lungs: clear Cor.: S1S1, sys murmur Abd.: soft Ext.: no edema Neuro.: alert Labs noted. CBC, CMP OK. INR 1.54 BC X2 NG at 4 days Objective - Vital Signs/Intake and Output Vital Signs (last 24 hours): Temp Pulse Resp BP Pulse Ox 98.2 F 67 90 H 144/69 96 07/19/18 07:51 07/19/18 07:51 07/19/18 07:51 07/19/18 07:51 07/19/18 07:51 Intake and Output: 07/19/18 07/19/18 06:59 18:59 Intake Total 920 Balance 920 - Medications Medications: Current Medications Atorvastatin Calcium (Lipitor) 20 mg PO DIN [facility] Last Admin: 07/18/18 18:15 Dose: 20 mg Cefazolin Sodium (Ancef 1gm In Ns) 1 gm in 100 mls @ 100 mls/hr IVPB Q8 [facility] PRN Reason: Protocol Last Admin: 07/19/18 06:15 Dose: 100 mls/hr Lactobacillus Acidophilus (Bacid Acidophilus) 1 cap PO BID [facility] Last Admin: 07/18/18 18:15 Dose: 1 cap Metoprolol Succinate (Toprol Xl) 100 mg PO DAILY [facility] Last Admin: 07/18/18 09:11 Dose: 100 mg Morphine Sulfate (Morphine) 1 mg IVP Q4H PRN PRN Reason: Pain, severe (8-10) Pantoprazole Sodium (Protonix Ec Tab) 40 mg PO 0600 [facility] Last Admin: 07/19/18 06:15 Dose: Not Given Sertraline HCl (Zoloft) 50 mg PO DAILY [facility] Last Admin: 07/18/18 09:11 Dose: 50 mg Trazodone HCl (Desyrel) 50 mg PO HS PRN PRN Reason: Sedation Last Admin: 07/18/18 23:23 Dose: 50 mg Warfarin Sodium (Coumadin) 5 mg PO 1800 [facility] PRN Reason: Protocol Last Admin: 07/17/18 17:38 Dose: 5 mg - Labs Labs: 07/19/18 06:00 07/19/18 06:00 PT 17.9 SECONDS (9.4-12.5) H 07/19/18 06:00 INR 1.54 07/19/18 06:00 APTT 38.7 Seconds (25.1-36.5) H 07/15/18 06:20 Assessment and Plan - Assessment and Plan (Free Text) Assessment: Mechanical Fall with right wrist fracture H/O AVR with aortic root repair and TV annuloplasty Chronic AF on warfarin Echo: NL LV fx., Dilated RV, NL AVR, HBP HLD CVA Anemia GERD Cataract surgery Plan: To OR later today. Continue metoprolol. Mild to moderate increased cardiac risk. Resume warfarin post op, bridge with Lovenox, as per ortho.
[2018-07-19] MEDS: Lactobacillus Acidophilus 500 MU Cap PO SCH (10:10)
[2018-07-19] MEDS ORDERED: Midazolam 2 MG/2 ML VIAL ONE (11:23)
[2018-07-19] MEDS ORDERED: MethylPREDNISolone Depo 40 mg/ml Inj ONE (12:07)
[2018-07-19] MEDS ORDERED: Bupivacaine 0.5% Inj(30mL) ONE (12:07)
[2018-07-19] MEDS ORDERED: Lactated Ringer's 1,000 ML IV SCH (12:30)
[2018-07-19 12:43] VITALS: RESP 19; TEMP 98.2; O2SAT 99
[2018-07-19 13:27] VITALS: BP 180/91; PULSE 63
--- NOTE | 2018-07-19 14:12 | OP ---
Copied To: Bruce Singh DO Attending MD: Bruce Singh DO PROCEDURE DATE: 07/19/2018 DATE OF INJURY: 07/15/2018 PREOPERATIVE DIAGNOSIS: Dorsally displaced and comminuted fracture, right distal radius and ulna. POSTOPERATIVE DIAGNOSIS: Dorsally displaced and comminuted fracture, right distal radius and ulna. PROCEDURE: Closed reduction with a taye block with Xylocaine and application of short-arm cast with manipulation of the dorsal angulation to correct it. DESCRIPTION OF PROCEDURE: The patient was taken to the OR, right wrist was prepped and draped in sterile fashion and then we gave the patient some IV sedation and a taye block by Anesthesia. Once it was taken, we were able to manipulate the right distal radius with the help of finger traction of 15 pounds and manipulation, being careful and slow to reduce the fracture to avoid excess bleeding because she is on blood thinners. We were able to accomplish the correction of the dorsal deformity under lateral view and radial shortening on the AP view. The x-ray looks improved, so we put in the plaster of mery short-arm cast after we put a dressing on the distal radius volar surface abrasion and plaster of mery and molded the cast to let that hard. X-ray showed improved position of the previously displaced distal radius fracture with the correction of the dorsal deformity and improvement of the radial length. The patient was taken to Recovery Room in good condition under taye block. Bruce Singh DO MTDTeresa
--- NOTE | 2018-07-19 14:48 | CP.PCM.PN ---
Subjective - Date & Time of Evaluation Date of Evaluation: 07/19/18 Time of Evaluation: 11:20 - Subjective Subjective: No fevers, not in distress, no increased pain in the right hand. Objective - Vital Signs/Intake and Output Vital Signs (last 24 hours): Temp Pulse Resp BP Pulse Ox 98.2 F 67 90 H 144/69 96 07/19/18 07:51 07/19/18 07:51 07/19/18 07:51 07/19/18 07:51 07/19/18 07:51 Intake and Output: 07/19/18 07/19/18 06:59 18:59 Intake Total 920 Balance 920 - Medications Medications: Current Medications Atorvastatin Calcium (Lipitor) 20 mg PO DIN [facility] Last Admin: 07/18/18 18:15 Dose: 20 mg Cefazolin Sodium (Ancef 1gm In Ns) 1 gm in 100 mls @ 100 mls/hr IVPB Q8 [facility] PRN Reason: Protocol Last Admin: 07/19/18 06:15 Dose: 100 mls/hr Lactobacillus Acidophilus (Bacid Acidophilus) 1 cap PO BID [facility] Last Admin: 07/18/18 18:15 Dose: 1 cap Metoprolol Succinate (Toprol Xl) 100 mg PO DAILY [facility] Last Admin: 07/18/18 09:11 Dose: 100 mg Morphine Sulfate (Morphine) 1 mg IVP Q4H PRN PRN Reason: Pain, severe (8-10) Pantoprazole Sodium (Protonix Ec Tab) 40 mg PO 0600 [facility] Last Admin: 07/19/18 06:15 Dose: Not Given Sertraline HCl (Zoloft) 50 mg PO DAILY [facility] Last Admin: 07/18/18 09:11 Dose: 50 mg Trazodone HCl (Desyrel) 50 mg PO HS PRN PRN Reason: Sedation Last Admin: 07/18/18 23:23 Dose: 50 mg Warfarin Sodium (Coumadin) 5 mg PO 1800 [facility] PRN Reason: Protocol Last Admin: 07/17/18 17:38 Dose: 5 mg - Labs Labs: 07/19/18 06:00 07/19/18 06:00 PT 17.9 SECONDS (9.4-12.5) H 07/19/18 06:00 INR 1.54 07/19/18 06:00 APTT 38.7 Seconds (25.1-36.5) H 07/15/18 06:20 - Constitutional Appears: Chronically Ill - Head Exam Head Exam: NORMAL INSPECTION - Respiratory Exam Respiratory Exam: Decreased Breath Sounds - Cardiovascular Exam Cardiovascular Exam: +S1, +S2 - GI/Abdominal Exam GI & Abdominal Exam: Soft. absent: Tenderness - Extremities Exam Additional comments: right forearm with cast in place Assessment and Plan - Assessment and Plan (Free Text) Plan: Assessment right distal arm fracture with mild cellulitis aortic aneurysm S/P aortic valve replacement CVA cataracts chronic anemia HTN GERD Plan Continue Cefazolin day 5 - complete total 10 days of antibiotics
[2018-07-19] MEDS ORDERED: Enoxaparin 80 mg Syringe SC SCH (16:00)
--- NOTE | 2018-07-19 16:42 | RAD ---
Date of service: 07/19/2018 PROCEDURE: Fluoroscopy up to 1 hour HISTORY: CLOSED REDUCTION OF RT. WRIST FX. COMPARISON: TECHNIQUE: Fluoroscopy was provided in the operating room. 5 seconds of fluoro time. Cumulative dose 0.34 mGy. 10 images were submitted FINDINGS: The study shows a closed reduction of the right wrist fracture. There is anatomic alignment with no angulation. IMPRESSION: As above
--- NOTE | 2018-07-20 14:56 | CP.PCM.DIS ---
Provider - Provider Date of Admission: 07/15/18 15:46 Attending physician: Whit Herbert MD Primary care physician: Fatmata Douglass MD Consults: Orthopedics urgery Infectious disease Time Spent in preparation of Discharge (in minutes): 45 Hospital Course - Lab Results Lab Results: Most Recent Lab Values WBC 7.0 10^3/ul (4.5-11.0) 07/19/18 06:00 RBC 4.19 10^6/uL (3.5-6.1) 07/19/18 06:00 Hgb 11.2 g/dL (12.0-16.0) L 07/19/18 06:00 Hct 35.0 % (36.0-48.0) L 07/19/18 06:00 MCV 83.5 fl (80.0-105.0) 07/19/18 06:00 MCH 26.7 pg (25.0-35.0) 07/19/18 06:00 MCHC 32.0 g/dl (31.0-37.0) 07/19/18 06:00 RDW 15.5 % (11.5-14.5) H 07/19/18 06:00 Plt Count 222 10^3/uL (120.0-450.0) 07/19/18 06:00 MPV 9.8 fl (7.0-11.0) 07/19/18 06:00 Gran % 48.8 % (50.0-68.0) L 07/19/18 06:00 Lymph % (Auto) 36.3 % (22.0-35.0) H 07/19/18 06:00 [place] % (Auto) 8.8 % (1.0-6.0) H 07/19/18 06:00 Eos % (Auto) 5.7 % (1.5-5.0) H 07/19/18 06:00 Baso % (Auto) 0.4 % (0.0-3.0) 07/19/18 06:00 Gran # 3.40 (1.4-6.5) 07/19/18 06:00 Lymph # (Auto) 2.5 (1.2-3.4) 07/19/18 06:00 [place] # (Auto) 0.6 (0.1-0.6) 07/19/18 06:00 Eos # (Auto) 0.4 (0.0-0.7) 07/19/18 06:00 Baso # (Auto) 0.03 K/mm3 (0.0-2.0) 07/19/18 06:00 PT 17.9 SECONDS (9.4-12.5) H 07/19/18 06:00 INR 1.54 07/19/18 06:00 APTT 38.7 Seconds (25.1-36.5) H 07/15/18 06:20 Sodium 137 mmol/L (132-148) 07/19/18 06:00 Potassium 4.2 mmol/L (3.6-5.0) 07/19/18 06:00 Chloride 100 mmol/L (98-107) 07/19/18 06:00 Carbon Dioxide 30 mmol/L (21-33) 07/19/18 06:00 Anion Gap 11 (10-20) 07/19/18 06:00 BUN 18 mg/dL (7-21) 07/19/18 06:00 Creatinine 0.7 mg/dl (0.7-1.2) 07/19/18 06:00 Est GFR ( Amer) > 60 07/19/18 06:00 Est GFR (Non-Af Amer) > 60 07/19/18 06:00 Random Glucose 93 mg/dL (70-110) 07/19/18 06:00 Calcium 8.8 mg/dL (8.4-10.5) 07/19/18 06:00 Phosphorus 3.7 mg/dL (2.5-4.5) 07/15/18 06:20 Magnesium 1.7 mg/dL (1.7-2.2) 07/15/18 06:20 Total Bilirubin 0.8 mg/dL (0.2-1.3) 07/19/18 06:00 AST 27 U/L (14-36) 07/19/18 06:00 ALT 21 U/L (7-56) 07/19/18 06:00 Alkaline Phosphatase 102 U/L (38-126) 07/19/18 06:00 Total Creatine Kinase 82 U/L (35-230) 07/14/18 16:30 Total Protein 6.6 g/dL (5.8-8.3) 07/19/18 06:00 Albumin 3.4 g/dL (3.0-4.8) 07/19/18 06:00 Globulin 3.2 gm/dL 07/19/18 06:00 Albumin/Globulin Ratio 1.1 (1.1-1.8) 07/19/18 06:00 TSH 3rd Generation 1.87 mIU/mL (0.46-4.68) 07/15/18 06:20 Blood Type O POSITIVE 07/14/18 17:47 Antibody Screen Negative 07/14/18 17:47 BBK History Checked Patient has bt 07/14/18 17:47 - Hospital Course Hospital Course: On admission: 77 year old Female with PMH of Aortic aneurysm s/p Aortic valve replacement in 11/2016 (on Warfarin), CVA in 2011, cataracts, anemia, HTN, GERD who presents with R wrist swelling s/p backward mechanical fall on the cement. CT upper extremity showed Colles fracture of the right distal radius. There was also concern for possible cellulitis at the site of injury. On admission: Patient had right distal radial fracture diagnosed by CT upper extremity that showed comminuted fracture of distal radius extending to articular surface. It was impacted fracture, no significant angulation, with fracture of of ulnar styloid. Infectious disease consulted for possible cellulitis at the fracture site with edema and ecchymosis. Cefazolin IV was initiated, with plan for a total of 10 days of antibiotics (currently day 5/10). Wound cultures and blood cultures were negative. Patient went for closed reduction of right distal radial fracture performed by Dr Singh. Patient has a history of atrial fibrilation, and is on warfarin for anticoagulation. Warfarin was held prior to surgical procedure, and patient is now being bridged back to therapeutic coumadin with therapeutic Lovenox (1mg/kg SC q12), with routine INR monitoring. Patient has a history of mitral valve proplase s/p aortic valve replacement. Echocardiogram was done and showed LV normal size and function, with an EF 55%, RV severely dilated, and RV systolic function severely reduced. Continued home medications for HTN, HLD, and depression, as patient appears well-managed on current regimen. On discharge: Admitted to TCU at [facility] for continued bridging to therapeutic coumadin on therapeutic Lovenox, continued IV antibiotic therapy for possible cellulitis, and for reconditioning. Patient is hemodynamically stable. no signs of bleeding Morphine 2 mg q4 prn for pain Wrist cast for at least 2-3 weeks and will be changed periodically as per Dr Singh Complete Cefazolin for a total of 10 days (currently day 04/07), as per ID. No acute fevers or leukocytosis at this time. Continue to monitor the fracture site for any signs of infection, intractable pain, excessive swelling, bleeding, color changes. Continue to keep the wrist elevated in a sling to reduce swelling Discharge Exam - Additional Findings Additional findings: - Constitutional Appears: Well, No Acute Distress - Head Exam Head Exam: ATRAUMATIC, NORMAL INSPECTION, NORMOCEPHALIC - Eye Exam Eye Exam: EOMI, Normal appearance, PERRL Pupil Exam: NORMAL ACCOMODATION, PERRL - ENT Exam ENT Exam: Mucous Membranes Moist, Normal Exam - Neck Exam Neck Exam: Full ROM, Normal Inspection. absent: Lymphadenopathy - Respiratory Exam Respiratory Exam: Clear to Ausculation Bilateral, NORMAL BREATHING PATTERN - Cardiovascular Exam Cardiovascular Exam: Irregular Rhythm, +S1, +S2, Murmur (systolic murmur) - GI/Abdominal Exam GI & Abdominal Exam: Soft, Normal Bowel Sounds. absent: Tenderness - Rectal Exam Rectal Exam: Deferred - Extremities Exam Extremities Exam: Full ROM, Normal Capillary Refill, Normal Inspection. absent : Joint Swelling, Pedal Edema Additional comments: splint on right right forearm and wrist. improving right hand swelling can move right fingers. sensation intact no color changes - Back Exam Back Exam: NORMAL INSPECTION - Neurological Exam Neurological Exam: Alert, Awake, CN II-XII Intact, Normal Gait, Oriented x3 - Psychiatric Exam Psychiatric exam: Normal Affect, Normal Mood - Skin Skin Exam: Dry, Intact, Normal Color, Warm Additional comments: misternal scar Discharge Plan - Follow Up Plan Condition: GOOD Disposition: REHAB FACILITY/REHAB UNIT Instructions: Preventing Falls in the Older Adult, Cast Care, Acute Pain, Adult , Radius Fracture (DC), Closed Fracture Reduction (DC) Additional Instructions: Follow up with primary care physician within 3-5 days upon discharge from TCU Take medications as prescribed to you Continue to work with physical therapy Referrals: Bruce Singh DO [Staff Provider] - Fatmata Sheridan MD [Primary Care Provider] -
== END 2018-07-19 17:29 | DRG 563 ==
LOC: ED 15:17 → ERH 22:46 → 5RNO 07-15 00:32 → OBSVTOIN 07-15 15:46 → 5RNO 07-17 20:41
PROVIDERS: ADMIT Hospitalist; ATTEND Internal Medicine
PROC: 0PSHXZZ Reposition Right Radius, External Approach (ICD-10-PCS; principal; 2018-07-19 11:00)
DX: S52.501A Unspecified fracture of the lower end of right radius, initial encounter for closed fracture (principal); L03.113 Cellulitis of right upper limb; S52.611A Displaced fracture of right ulna styloid process, initial encounter for closed fracture; I10 Essential (primary) hypertension; I48.2 Chronic atrial fibrillation; K21.9 Gastro-esophageal reflux disease without esophagitis; I08.1 Rheumatic disorders of both mitral and tricuspid valves; I27.20 Pulmonary hypertension, unspecified; F32.9 Major depressive disorder, single episode, unspecified; D64.9 Anemia, unspecified; E78.5 Hyperlipidemia, unspecified; W01.10XA Fall on same level from slipping, tripping and stumbling with subsequent striking against unspecified object, initial encounter; Y92.89 Other specified places as the place of occurrence of the external cause; Z95.2 Presence of prosthetic heart valve; Z79.01 Long term (current) use of anticoagulants; Z86.73 Personal history of transient ischemic attack (TIA), and cerebral infarction without residual deficits; Z87.01 Personal history of pneumonia (recurrent); Z79.83 Long term (current) use of bisphosphonates; Z98.49 Cataract extraction status, unspecified eye; Z88.2 Allergy status to sulfonamides; Z91.040 Latex allergy status

== ENCOUNTER 2018-07-19 17:34 | Inpatient (IN) | payer OTHER, BC ==
[2018-07-19] MEDS ORDERED: Morphine 2 mg/ml ISec IVP PRN (17:44)
[2018-07-19] MEDS: ceFAZolin 1 gm in NS 1 GM/100 ML BAG IVPB SCH (21:30)
[2018-07-20] MEDS: ceFAZolin 1 gm in NS 1 GM/100 ML BAG IVPB SCH ×3 (05:20→21:26)
[2018-07-20] MEDS: Enoxaparin 80 mg Syringe SC SCH ×2 (05:20→17:32)
[2018-07-20] MEDS: Pantoprazole 40 mg EC Tab PO SCH (05:21)
[2018-07-20] MEDS: Metoprolol Succinate 100 mg XL Tab PO SCH (08:11)
--- NOTE | 2018-07-20 08:26 | CON ---
Copied To: Bruce Singh DO Attending MD: Bruce Singh DO DATE: 07/20/2018 ORTHOPEDIC CONSULT Came to [facility] on 07/19/2018. HISTORY OF PRESENT ILLNESS: The patient is a 77-year-old female who sustained a highly displaced and comminuted fracture of her right dominant distal radius on 07/15/2018 and I was asked to see the patient a couple of days later and we had to undo what was done in the Emergency Room inadequate reduction of the highly comminuted dorsally displaced fracture, so we took her to the OR on 07/19/2018 under [place] block of Xylocaine to anesthetize the right wrist. We did a closed reduction under sedation and the Jules block and accomplished adequate post reduction x-ray . The dorsal toe has been corrected and the radial length has been obtained. She is in a plaster of Adelina cast and she is under Transitional Care floor for rehab before she goes home to live alone. I will follow her here and probably change the cast in 10 days to 2 weeks when the swelling goes down. Hopefully, I could do it while she is in this facility and if that, I will do it in the office. FINAL DIAGNOSIS: Dorsally displaced fracture of right distal radius, corrected with a closed reduction done in the Emergency Room on 07/19/2018 and I will keep the cast on for at least 2 to 3 weeks and change it periodically. Bruce Singh DO
[2018-07-20 08:51] LABS: HEMOGLOBIN 11.7 g/dL (12.0-16.0); MEAN CELL VOLUME 83.7 fl (80.0-105.0); MEAN CORPUSCULAR HEMOGLOBIN 26.8 pg (25.0-35.0); MEAN CORPUSCULAR HGB CONC 32.1 g/dl (31.0-37.0); MEAN PLATELET VOLUME 8.9 fl (7.0-11.0); RBC 4.36 10^6/uL (3.5-6.1); RED CELL DISTRIBUTION WIDTH 15.4 % (11.5-14.5); WHITE BLOOD COUNT 6.9 10^3/ul (4.5-11.0)
[2018-07-20 09:00] LABS: INR 1.42; PROTHROMBIN TIME 16.5 SECONDS (9.4-12.5)
[2018-07-20 09:23] LABS: BLOOD UREA NITROGEN 14 mg/dL (7-21); CALCIUM 9.1 mg/dL (8.4-10.5); GFR NON-AFRICAN AMERICAN > 60
[2018-07-20] MEDS: Lactobacillus Acidophilus 500 MU Cap PO SCH ×2 (10:20→17:31)
--- NOTE | 2018-07-20 13:44 | CP.PCM.HP ---
<Demetrio Arias - Last Filed: 07/20/18 14:48> History of Present Illness - History of Present Illness History of Present Illness: Demetrio Juana, PGY-1 History and Physical for Hospitalist Service 77 year old Female with PMH of Aortic aneurysm s/p Aortic valve replacement in 11/2016 (on Warfarin), CVA in 2011, cataracts, anemia, HTN, GERD who admitted to TCU for adjustment of her coagulation profile s/p orthopedic surgery of closed reduction of distal radial fracture s/p mechanical fall. Patient denied any bleeding, erythema, intractable pain, color changes after the procedure. Patient will stay in TCU for coumadin-lovenox bridging. Patient has moderate right wrist pain controlled with medications. She denied chest pain, cough, SOB , headache, palpitation, dizziness 12-point ROS reviewed with positives as above PMHx: Aortic aneurysm s/p Aortic valve replacement in 11/2016, CVA in 2011, cataracts, anemia, HTN, GERD PSHx: L benign breast cyst All: Sulfa ABx (anaphylaxis) Social Hx: Social ETOH, denies IVDU and tobacco. Lives home alone Family hx: Brother and dad both from prostate CA before age 70 Meds: Trazodone 50 mg HS, Coumadin 5 mg, Zoloft 50 mg PO, Pravastatin 20 mg , Pantoprazole 40 mg, Metoprolol 100 mg, Alendronate 70 weekly PMD: Dr. Watson (Call was placed to Dr. Douglass overnight and she refused admission and deferred to hospitalist team. Cardio: Dr. Ibarra Orthopedist: Dr. Chavez Present on Admission - Present on Admission Any Indicators Present on Admission: No Review of Systems - Constitutional Constitutional: absent: Anorexia, Fever, Headache, Malaise, Night Sweats - EENT Eyes: absent: Discharge, Irritation, Photophobia, Sees Flashes Nose/Mouth/Throat: absent: Nasal Congestion, Bleeding Gums, Dysphagia, Mouth Pain - Cardiovascular Cardiovascular: absent: Chest Pain, Edema, Orthopnea, Palpitations, Paroxysmal Nocturnal Dyspnea, Pedal Edema - Respiratory Respiratory: absent: Cough, Dyspnea, Hemoptysis, Snoring - Gastrointestinal Gastrointestinal: absent: Abdominal Pain, Change in Stool Character, Diarrhea, Hematochezia - Genitourinary Genitourinary: absent: Flank Pain, Pyuria, Urinary Hesitance - Musculoskeletal Musculoskeletal: absent: Muscle Cramps, Muscle Weakness - Integumentary Integumentary: absent: Lesions, Rash, Sores - Neurological Neurological: absent: Confusion, Dizziness, Focal Weakness, Headaches, Paresthesias, Radicular Pain - Psychiatric Psychiatric: absent: Behavioral Changes, Confusion, Depression - Endocrine Endocrine: absent: Flushing, Polyphagia, Polyuria - Hematologic/Lymphatic Hematologic: absent: Easy Bleeding, Easy Bruising Past Patient History - Past Social History Smoking Status: Never Smoked - CARDIAC Hx Cardiac Disorders: Yes Hx Hypertension: Yes - PULMONARY Hx Respiratory Disorders: Yes Hx Pneumonia: Yes - NEUROLOGICAL HX Cerebrovascular Accident: Yes (2011) - HEENT Hx HEENT Problems: Yes Hx Cataracts: Yes (b/l sx) - RENAL Hx Chronic Kidney Disease: No - ENDOCRINE/METABOLIC Hx Endocrine Disorders: No - HEMATOLOGICAL/ONCOLOGICAL Hx Blood Transfusions: No Hx Blood Transfusion Reaction: No - INTEGUMENTARY Hx Dermatological Problems: No - MUSCULOSKELETAL/RHEUMATOLOGICAL Hx Falls: Yes - GASTROINTESTINAL Hx Gastrointestinal Disorders: Yes Hx Gastroesophageal Reflux: Yes - GENITOURINARY/GYNECOLOGICAL Hx Reproductive Disorders: No - PSYCHIATRIC Hx Emotional Abuse: No Hx Physical Abuse: No Hx Substance Use: No - SURGICAL HISTORY Hx Surgeries: Yes - ANESTHESIA Hx Anesthesia Reactions: No Hx Malignant Hyperthermia: No Meds Allergies/Adverse Reactions: Allergies Allergy/AdvReac Type Severity Reaction Status Date / Time latex Allergy Mild RASH Verified 07/20/18 06:13 Sulfa (Sulfonamide Allergy ANAPHYLAXIS Verified 07/20/18 06:13 Antibiotics) Physical Exam - Constitutional Appears: Well, No Acute Distress - Head Exam Head Exam: ATRAUMATIC, NORMAL INSPECTION, NORMOCEPHALIC - Eye Exam Eye Exam: EOMI, Normal appearance, PERRL Pupil Exam: NORMAL ACCOMODATION, PERRL - ENT Exam ENT Exam: Mucous Membranes Moist, Normal Exam - Neck Exam Neck exam: Positive for: Normal Inspection - Respiratory Exam Respiratory Exam: Clear to Auscultation Bilateral, NORMAL BREATHING PATTERN - Cardiovascular Exam Cardiovascular Exam: Irregular Rhythm, +S1, +S2, Systolic Murmur - GI/Abdominal Exam GI & Abdominal Exam: Normal Bowel Sounds, Soft. absent: Tenderness - Extremities Exam Extremities exam: Positive for: normal inspection - Expanded Upper Extremities Exam Right Forearm Wrist exam: swelling. absent: ecchymosis, erythema - Back Exam Additional comments: Right wrist cast in place mild right hand swelling in the fingers. no color changes, feels warm to touch. no abrasions or signs of bleeding Results - Vital Signs Recent Vital Signs: Last Vital Signs Temp 97.6 F 07/19/18 18:11 Pulse 68 07/20/18 08:11 Resp 20 07/19/18 18:11 BP 142/70 07/20/18 08:11 Pulse Ox - Labs Result Diagrams: 07/20/18 08:20 07/20/18 08:20 Labs: Laboratory Results - last 24 hr 07/20/18 07/20/18 07/20/18 08:20 08:20 08:20 WBC 6.9 RBC 4.36 Hgb 11.7 L Hct 36.5 MCV 83.7 MCH 26.8 MCHC 32.1 RDW 15.4 H Plt Count 223 MPV 8.9 PT 16.5 H INR 1.42 Sodium 135 Potassium 4.3 Chloride 98 Carbon Dioxide 28 Anion Gap 13 BUN 14 Creatinine 0.7 Est GFR ( Amer) > 60 Est GFR (Non-Af Amer) > 60 Random Glucose 155 H Calcium 9.1 Assessment & Plan - Assessment and Plan (Free Text) Assessment: 77 year old Female with PMH of Aortic aneurysm s/p Aortic valve replacement in 11/2016 (on Warfarin), CVA in 2011, cataracts, anemia, HTN, GERD who admitted to TCU for adjustment of her coagulation profile s/p orthopedic surgery of closed reduction of distal radial fracture s/p mechanical fall Plan: H/O atrial fibrilation - Bridging warfarin-lovenox started after surgery on 07/19/18 - Warfarin 5 mg daily - Lovenox 65 q12h - INR 1.42 today. continue monitoring - Patient is hemodynamically stable. no signs of bleeding S/P closed reduction of right distal radial fracture - CT upper extremity: comminuted fracture of distal radius extending to articular surface. impacted fx, no significant angulation. fracture of of ulnar styloid. 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 EF 55%. RV severly dilated. RV Systolic function severely reduced HTN - c/w home med toprol xl HLD - continue home med lipitor Depression - continue home meds zoloft, trazodone -GI ppx Protonix -DVT ppx SCD -Heart healthy diet -Fall precautions Case reviewed and discussed with Dr Herbert - Date & Time Date: 07/19/18 Time: 15:25 <Whit Herbert - Last Filed: 07/21/18 15:08> Results - Vital Signs Recent Vital Signs: Last Vital Signs Temp 98 F 07/21/18 10:00 Pulse 80 07/21/18 10:00 Resp 20 07/21/18 10:00 BP 136/68 07/21/18 10:00 Pulse Ox 96 07/21/18 10:00 - Labs Result Diagrams: 07/20/18 08:20 07/20/18 08:20 Labs: Laboratory Results - last 24 hr 07/21/18 07:50 PT 16.4 H INR 1.42 Attending/Attestation - Attestation I have personally seen and examined this patient.: Yes I have fully participated in the care of the patient.: Yes I have reviewed all pertinent clinical information: Yes Notes (Text): 07/21/18 15:06 Attending note; Patient seen and examined with resident in TCU. s/p closed reduction in the OR. Pain is improving. Cast in place. Patient is a 77 year old Female with PMH of Aortic aneurysm s/p Aortic valve replacement in 11/2016 (on Warfarin), CVA in 2011, cataracts, anemia, HTN, GERD who presents with right wrist swelling s/p mechanical fall. Patient found to have right acute transverse nondisplaced impacted fracture in the distal radius and non displaced fracture in the styloid process of the ulna with possible cellulitis. Status post closed reduction ans cast placement. Cellulitis; continue IV cefazolin to cpmplete 4 more days. History of aortic valve replacement. History of atrial fibrillation. on Lovenox bridge therapy till INR is therapeutic. Continue Coumadin . INR is 1.6. continue PT and OT. Upon discharge the patient will follow-up with Dr. Douglass.
[2018-07-21] MEDS: Pantoprazole 40 mg EC Tab PO SCH (05:35)
[2018-07-21] MEDS: Enoxaparin 80 mg Syringe SC SCH ×2 (05:35→17:44)
[2018-07-21 08:09] LABS: INR 1.42; PROTHROMBIN TIME 16.4 SECONDS (9.4-12.5)
[2018-07-21] MEDS: Metoprolol Succinate 100 mg XL Tab PO SCH (08:19)
[2018-07-21] MEDS: Lactobacillus Acidophilus 500 MU Cap PO SCH ×2 (09:55→17:43)
[2018-07-22] MEDS: Enoxaparin 80 mg Syringe SC SCH ×2 (06:16→17:55)
[2018-07-22] MEDS: Pantoprazole 40 mg EC Tab PO SCH (06:16)
[2018-07-22 07:41] LABS: INR 1.73; PROTHROMBIN TIME 20.1 SECONDS (9.4-12.5)
[2018-07-22] MEDS: Metoprolol Succinate 100 mg XL Tab PO SCH (08:46)
[2018-07-22] MEDS: Lactobacillus Acidophilus 500 MU Cap PO SCH ×2 (10:39→17:54)
--- NOTE | 2018-07-22 13:33 | CP.PCM.PN ---
<Jose Ariasony - Last Filed: 07/22/18 14:16> Subjective - Date & Time of Evaluation Date of Evaluation: 07/22/18 Time of Evaluation: 06:00 - Subjective Subjective: Patient seen and examined at beside. No events overnight. Pain is controlled with meds. Right hand swelling is regressing. Sleeps well and has a good appetite. Patient denied chest pain, SOB, palpitations, fever, chills. Objective - Vital Signs/Intake and Output Vital Signs (last 24 hours): Temp Pulse Resp BP Pulse Ox 98.8 F 70 18 110/62 96 07/21/18 16:00 07/22/18 08:46 07/21/18 16:00 07/22/18 08:46 07/21/18 16:00 - Medications Medications: Current Medications Acetaminophen (Tylenol 325mg Tab) 650 mg PO Q4H PRN; Protocol PRN Reason: Pain, Mild (1-3) Last Admin: 07/20/18 06:31 Dose: 650 mg Atorvastatin Calcium (Lipitor) 20 mg PO DIN FRANSICO PRN Reason: Protocol Last Admin: 07/21/18 17:43 Dose: 20 mg Enoxaparin Sodium (Lovenox) 70 mg SC 0600,1800 FRANSICO PRN Reason: Protocol Last Admin: 07/22/18 06:16 Dose: 70 mg Lactobacillus Acidophilus (Bacid Acidophilus) 1 cap PO 1000,1800 FRANSICO PRN Reason: Protocol Last Admin: 07/22/18 10:39 Dose: 1 cap Metoprolol Succinate (Toprol Xl) 100 mg PO BRK FRANSICO PRN Reason: Protocol Last Admin: 07/22/18 08:46 Dose: 100 mg Morphine Sulfate (Morphine) 1 mg IVP Q4H PRN; Protocol PRN Reason: Pain, severe (8-10) Last Admin: 07/19/18 23:33 Dose: 1 mg Pantoprazole Sodium (Protonix Ec Tab) 40 mg PO 0600 FRANSICO PRN Reason: Protocol Last Admin: 07/22/18 06:16 Dose: 40 mg Sertraline HCl (Zoloft) 50 mg PO DAILY FRANSICO PRN Reason: Protocol Last Admin: 07/22/18 10:42 Dose: 50 mg Trazodone HCl (Desyrel) 50 mg PO HS PRN; Protocol PRN Reason: Sedation Last Admin: 07/21/18 23:06 Dose: 50 mg Warfarin Sodium (Coumadin) 7.5 mg PO 1800 FRANSICO Last Admin: 07/21/18 17:43 Dose: 7.5 mg - Labs Labs: 07/20/18 08:20 07/20/18 08:20 PT 20.1 SECONDS (9.4-12.5) H 07/22/18 07:10 INR 1.73 07/22/18 07:10 - Constitutional Appears: Well, No Acute Distress - Head Exam Head Exam: ATRAUMATIC, NORMAL INSPECTION, NORMOCEPHALIC - Eye Exam Eye Exam: EOMI, Normal appearance, PERRL Pupil Exam: NORMAL ACCOMODATION, PERRL - ENT Exam ENT Exam: Mucous Membranes Moist, Normal Exam - Neck Exam Neck Exam: Full ROM, Normal Inspection. absent: Lymphadenopathy - Respiratory Exam Respiratory Exam: Clear to Ausculation Bilateral, NORMAL BREATHING PATTERN - Cardiovascular Exam Cardiovascular Exam: Irregular Rhythm, +S1, +S2, Murmur - GI/Abdominal Exam GI & Abdominal Exam: Soft, Normal Bowel Sounds. absent: Tenderness - Extremities Exam Additional comments: Right forearm cast placed. hand swelling is regressing. moves fingers. no color changes. no erythema. - Back Exam Back Exam: NORMAL INSPECTION - Neurological Exam Neurological Exam: Alert, Awake, CN II-XII Intact, Normal Gait, Oriented x3 - Psychiatric Exam Psychiatric exam: Normal Affect, Normal Mood - Skin Skin Exam: Dry, Intact, Normal Color, Warm Assessment and Plan - Assessment and Plan (Free Text) Assessment: 77 year old Female with PMH of Aortic aneurysm s/p Aortic valve replacement in 11/2016 (on Warfarin), CVA in 2011, cataracts, anemia, HTN, GERD who presents with right wrist swellings/p admitted to TCU s/p colsed reduction of right radius colles fracture after sustaining mechanical fall with skin cellulitis. Plan: History of atrial fibrillation. -Under bridging therapy -Coumadin 7.5 mg daily -Lovenox 70 mg q12hr -PT/INR:20.1/1.73 today. Continue to monitor till therapeutic level reached Status post closed reduction and cast placement -Continue PT/OT Cellulitis Continue IV cefazolin, day#6. complete 10 days of therapy History of aortic valve replacement Echo was done. satisfactory results. no medical management needed Case reviwed and discussed with Dr Herbert <Whit Herbert - Last Filed: 07/22/18 17:27> Objective - Vital Signs/Intake and Output Vital Signs (last 24 hours): Temp Pulse Resp BP Pulse Ox 98 F 75 18 145/69 94 L 07/22/18 16:00 07/22/18 16:00 07/22/18 16:00 07/22/18 16:00 07/22/18 16:00 - Medications Medications: Current Medications Acetaminophen (Tylenol 325mg Tab) 650 mg PO Q4H PRN; Protocol PRN Reason: Pain, Mild (1-3) Last Admin: 07/20/18 06:31 Dose: 650 mg Atorvastatin Calcium (Lipitor) 20 mg PO DIN FRANSICO PRN Reason: Protocol Last Admin: 07/21/18 17:43 Dose: 20 mg Enoxaparin Sodium (Lovenox) 70 mg SC 0600,1800 FRANSICO PRN Reason: Protocol Last Admin: 07/22/18 06:16 Dose: 70 mg Lactobacillus Acidophilus (Bacid Acidophilus) 1 cap PO 1000,1800 FRANSICO PRN Reason: Protocol Last Admin: 07/22/18 10:39 Dose: 1 cap Metoprolol Succinate (Toprol Xl) 100 mg PO BRK FRANSICO PRN Reason: Protocol Last Admin: 07/22/18 08:46 Dose: 100 mg Morphine Sulfate (Morphine) 1 mg IVP Q4H PRN; Protocol PRN Reason: Pain, severe (8-10) Last Admin: 07/19/18 23:33 Dose: 1 mg Pantoprazole Sodium (Protonix Ec Tab) 40 mg PO 0600 FRANSICO PRN Reason: Protocol Last Admin: 07/22/18 06:16 Dose: 40 mg Sertraline HCl (Zoloft) 50 mg PO DAILY FRANSICO PRN Reason: Protocol Last Admin: 07/22/18 10:42 Dose: 50 mg Trazodone HCl (Desyrel) 50 mg PO HS PRN; Protocol PRN Reason: Sedation Last Admin: 07/21/18 23:06 Dose: 50 mg Warfarin Sodium (Coumadin) 7.5 mg PO 1800 FRANSICO Last Admin: 07/21/18 17:43 Dose: 7.5 mg - Labs Labs: 07/20/18 08:20 07/20/18 08:20 PT 20.1 SECONDS (9.4-12.5) H 07/22/18 07:10 INR 1.73 07/22/18 07:10 Attending/Attestation - Attestation I have personally seen and examined this patient.: Yes I have fully participated in the care of the patient.: Yes I have reviewed all pertinent clinical information, including history, physical exam and plan: Yes Notes (Text): 07/22/18 17:22 Attending note; Patient seen and examined with resident in TCU. Patient is alert and awake. Denies any pain. Doing physical therapy and occupational therapy. Patient is a 77 year old Female with PMH of Aortic aneurysm s/p Aortic valve replacement in 11/2016 (on Warfarin), CVA in 2011, cataracts, anemia, HTN, GERD who presents with right wrist swelling s/p mechanical fall. Patient found to have right acute transverse nondisplaced impacted fracture in the distal radius and non displaced fracture in the styloid process of the ulna with mild cellulitis. Status post closed reduction and cast placement. Cellulitis; continue IV cefazolin to complete 2 more days. History of aortic valve replacement. History of atrial fibrillation. on Lovenox bridge therapy till INR is therapeutic. Continue Coumadin . INR is 1.73. continue PT and OT. Upon discharge the patient will follow-up with Dr. Douglass.
[2018-07-23] MEDS: Pantoprazole 40 mg EC Tab PO SCH (05:30)
[2018-07-23] MEDS: Enoxaparin 80 mg Syringe SC SCH ×2 (05:30→17:12)
[2018-07-23] MEDS: Metoprolol Succinate 100 mg XL Tab PO SCH (08:38)
[2018-07-23] MEDS: Lactobacillus Acidophilus 500 MU Cap PO SCH ×2 (09:08→17:11)
[2018-07-23 09:15] LABS: INR 2.67; PROTHROMBIN TIME 31.3 SECONDS (9.4-12.5)
[2018-07-24] MEDS: Enoxaparin 80 mg Syringe SC SCH (05:43)
[2018-07-24] MEDS: Pantoprazole 40 mg EC Tab PO SCH (05:44)
[2018-07-24 08:05] LABS: PROTHROMBIN TIME 43.2 SECONDS (9.4-12.5)
[2018-07-24 08:16] LABS: INR 3.66
[2018-07-24] MEDS: Metoprolol Succinate 100 mg XL Tab PO SCH (08:40)
[2018-07-24] MEDS: Lactobacillus Acidophilus 500 MU Cap PO SCH ×2 (09:13→17:26)
--- NOTE | 2018-07-24 12:36 | CP.PCM.PN ---
<Ozzie Morgane - Last Filed: 07/24/18 12:33> Subjective - Date & Time of Evaluation Date of Evaluation: 07/24/18 Time of Evaluation: 12:33 - Subjective Subjective: Gilberto Cathy PGY2 - Progress Note for Hospitalist Service Patient seen and evaluated today. No acute events reported overnight. Patient indicates she is feeling better and continues to work with physical therapy. She does complain of right sided hip pain on admission and requests to have her hip evaluated with xray. She denies chest pain, shortness of breath, abdominal pain, nausea, vomiting, fever, chills, gait instability, falls. Objective - Vital Signs/Intake and Output Vital Signs (last 24 hours): Temp Pulse Resp BP Pulse Ox 97.8 F 66 18 130/70 100 07/23/18 16:00 07/24/18 08:40 07/23/18 16:00 07/24/18 08:40 07/23/18 16:00 Intake and Output: 07/24/18 07/24/18 06:59 18:59 Intake Total 420 Output Total 700 Balance -280 - Medications Medications: Current Medications Acetaminophen (Tylenol 325mg Tab) 650 mg PO Q4H PRN; Protocol PRN Reason: Pain, Mild (1-3) Last Admin: 07/20/18 06:31 Dose: 650 mg Atorvastatin Calcium (Lipitor) 20 mg PO DIN [facility] PRN Reason: Protocol Last Admin: 07/23/18 17:11 Dose: 20 mg Lactobacillus Acidophilus (Bacid Acidophilus) 1 cap PO 1000,1800 [facility] PRN Reason: Protocol Last Admin: 07/24/18 09:13 Dose: 1 cap Metoprolol Succinate (Toprol Xl) 100 mg PO BRK [facility] PRN Reason: Protocol Last Admin: 07/24/18 08:40 Dose: 100 mg Pantoprazole Sodium (Protonix Ec Tab) 40 mg PO 0600 [facility] PRN Reason: Protocol Last Admin: 07/24/18 05:44 Dose: 40 mg Sertraline HCl (Zoloft) 50 mg PO DAILY [facility] PRN Reason: Protocol Last Admin: 07/24/18 09:13 Dose: 50 mg Trazodone HCl (Desyrel) 50 mg PO HS PRN; Protocol PRN Reason: Sedation Last Admin: 07/24/18 00:21 Dose: 50 mg Warfarin Sodium (Coumadin) 5 mg PO 1800 [facility] PRN Reason: Protocol - Labs Labs: 07/20/18 08:20 07/20/18 08:20 PT 43.2 SECONDS (9.4-12.5) H 07/24/18 07:30 INR 3.66 H* 07/24/18 07:30 - Constitutional Appears: No Acute Distress - Head Exam Head Exam: ATRAUMATIC, NORMAL INSPECTION, NORMOCEPHALIC - Eye Exam Eye Exam: EOMI, PERRL - ENT Exam ENT Exam: Mucous Membranes Moist - Neck Exam Neck Exam: Full ROM - Respiratory Exam Respiratory Exam: Clear to Ausculation Bilateral, NORMAL BREATHING PATTERN. absent: Rhonchi, Wheezes - Cardiovascular Exam Cardiovascular Exam: Irregular Rhythm, +S1, +S2 - GI/Abdominal Exam GI & Abdominal Exam: Soft, Normal Bowel Sounds. absent: Guarding, Rigid, Tenderness - Extremities Exam Additional comments: right wrist and forearm with dressing and immobilized at of hip - Neurological Exam Neurological Exam: Alert, Awake, CN II-XII Intact, Normal Gait, Oriented x3 - Psychiatric Exam Psychiatric exam: Normal Affect, Normal Mood - Skin Skin Exam: Dry, Intact Assessment and Plan - Assessment and Plan (Free Text) Assessment: 77 year old Female with PMH of Aortic aneurysm s/p Aortic valve replacement in 11/2016 (on Warfarin), CVA in 2011, cataracts, anemia, HTN, GERD who presents with right wrist swellings/p admitted to TCU s/p closed reduction of right radius colles fracture after sustaining mechanical fall with skin cellulitis Patient is now supratheraputic after restarting Coumdain. Will continue to monitor Plan: Deconditioning - Patient s/p right wrist closed reduction and cast placement with orthopedics - Continue physical and occupational therapy History of Atrial Fibrillation and AV replacement in 11/2016 (prosthetic) - Rate ocntroled and anticoagulated with warfarin - Stopping lovenox and holding PM dose of warfarin - Continue to monitor INR - Adjust coumadin as necessary Cellulitis - ID consulted on patient - IV cefazolin day#8/ - Patient to complete 10 day course Right Hip Pain - Right pelvis and hip xray GI/DVT ppx: - Pepcid - Warfarin Dispo: upon discharge the patient will follow-up with Dr. Douglass Case and Plan discussed with attending, Dr. Sheikh <Sheikh,Zahra R - Last Filed: 07/25/18 09:08> Objective - Vital Signs/Intake and Output Vital Signs (last 24 hours): Temp Pulse Resp BP Pulse Ox 97.8 F 66 18 153/81 H 100 07/23/18 16:00 07/25/18 07:57 07/23/18 16:00 07/25/18 07:57 07/23/18 16:00 Intake and Output: 07/25/18 07/25/18 06:59 18:59 Intake Total 420 Output Total 1 Balance 419 - Medications Medications: Current Medications Acetaminophen (Tylenol 325mg Tab) 650 mg PO Q4H PRN; Protocol PRN Reason: Pain, Mild (1-3) Last Admin: 07/20/18 06:31 Dose: 650 mg Atorvastatin Calcium (Lipitor) 20 mg PO DIN [facility] PRN Reason: Protocol Last Admin: 07/24/18 17:27 Dose: 20 mg Cefazolin Sodium (Ancef 1gm In Ns) 1 gm in 100 mls @ 100 mls/hr IVPB Q8 [facility] PRN Reason: Protocol Stop: 07/28/18 22:00 Last Admin: 07/25/18 05:04 Dose: 100 mls/hr Lactobacillus Acidophilus (Bacid Acidophilus) 1 cap PO 1000,1800 [facility] PRN Reason: Protocol Last Admin: 07/24/18 17:26 Dose: 1 cap Metoprolol Succinate (Toprol Xl) 100 mg PO BRK [facility] PRN Reason: Protocol Last Admin: 07/25/18 07:57 Dose: 100 mg Pantoprazole Sodium (Protonix Ec Tab) 40 mg PO 0600 [facility] PRN Reason: Protocol Last Admin: 07/25/18 05:05 Dose: 40 mg Sertraline HCl (Zoloft) 50 mg PO DAILY [facility] PRN Reason: Protocol Last Admin: 07/24/18 09:13 Dose: 50 mg Trazodone HCl (Desyrel) 50 mg PO HS PRN; Protocol PRN Reason: Sedation Last Admin: 07/24/18 21:18 Dose: 50 mg Warfarin Sodium (Coumadin) 5 mg PO 1800 [facility] PRN Reason: Protocol - Labs Labs: 07/20/18 08:20 07/20/18 08:20 PT 33.2 SECONDS (9.4-12.5) H 07/25/18 08:20 INR 2.83 07/25/18 08:20 Attending/Attestation - Attestation I have personally seen and examined this patient.: Yes I have fully participated in the care of the patient.: Yes I have reviewed all pertinent clinical information, including history, physical exam and plan: Yes Notes (Text): Patient seen and examined by me at 10:25AM with resident 07/24/18. Case including HPI, physical exam, and assessment and plan discussed with resident. Agree with above with following additions/corrections. Patient is a 77-year-old female past medical history significant for aortic aneurysm, status post aortic valve replacement, atrial fibrillation maintained on Coumadin, CVA, cataracts, anemia, hypertension, and GERD who was admitted to the TCU status post orthopedic surgery and closed reduction of distal right radial fracture status post mechanical fall. Patient states she is feeling okay. She states that she only has pain in her right arm with movement. She states that she would like an x-ray done of her right hip as she has had repair done previously and wanted to make sure she did not damage to area during her fall. She denies any chest pain or palpitations. No headaches or dizziness. No nausea, vomiting, or abdominal pain. No fevers or chills. Physical exam: Gen: Awake and alert sitting up in chair in no acute distress. HEENT: Normocephalic, atraumatic. Extraocular muscles intact, pupils equal reactive. No scleral icterus. Oropharynx is pink and moist. Neck is supple. Cardiovascular: Irregularly irregular rhythm. Positive systolic murmur. No rubs or gallops appreciated Pulmonary: Normal respiratory effort. No rhonchi, rales, or wheezing appreciated Gastrointestinal: Soft, nontender, nondistended. Positive bowel sounds all 4 quadrants, no guarding. Musculoskeletal: Decreased range of motion right upper extremity. Right upper extremity in sling. Cast area clean, dry, and intact Central nervous system: AAO 3 Dermatologic: Skin warm and dry Assessment and plan:Patient is a 77-year-old female past medical history significant for aortic aneurysm, status post aortic valve replacement, atrial fibrillation maintained on Coumadin, CVA, cataracts, anemia, hypertension, and GERD who was admitted to the TCU status post orthopedic surgery and closed reduction of distal right radial fracture status post mechanical fall. 1. Status post closed reduction of right distal radial fracture with cellulitis. Cast to remain in place for at least 2-3 weeks. Keep arm elevated. Patient was was to be on a total of 10 days of antibiotics. Will restart antibiotics to complete 10 days of antibiotics. Continue PT/OT has tolerated 2. Atrial fibrillation. Rate controlled. INR supratherapeutic. We'll hold Coumadin tonight. Repeat INR tomorrow. Once therapeutic, restart patient's home dosing of Coumadin. Continue metoprolol. 3. Hypertension. Continue metoprolol 4. Hypercholesterolemia. Continue Lipitor 5. Depression. Continue Zoloft and trazodone Case was discussed in detail with patient regarding current diagnosis and treatment plan.
--- NOTE | 2018-07-24 14:14 | RAD ---
PROCEDURE: Right Hip Radiographs. HISTORY: evaluation COMPARISON: None. FINDINGS: BONES: The pelvic ring is intact. There is no acute fracture or bone destruction. Bone alignment is normal. There is diffuse bone demineralization. Status post open reduction and internal fixation of proximal femoral fracture. No hardware complications. JOINTS: Normal. SOFT TISSUES: Normal. OTHER FINDINGS: There atherosclerotic vascular calcification. IMPRESSION: No acute displaced fracture or dislocation.Please note occult fractures cannot be excluded on plain radiographs. If there is a persistent clinical concern, an MRI of the hip may be performed for further evaluation.
[2018-07-24] MEDS: ceFAZolin 1 gm in NS 1 GM/100 ML BAG IVPB SCH (21:18)
[2018-07-25] MEDS: ceFAZolin 1 gm in NS 1 GM/100 ML BAG IVPB SCH ×3 (05:04→21:25)
[2018-07-25] MEDS: Pantoprazole 40 mg EC Tab PO SCH (05:05)
[2018-07-25] MEDS: Metoprolol Succinate 100 mg XL Tab PO SCH (07:57)
[2018-07-25 08:35] LABS: INR 2.83; PROTHROMBIN TIME 33.2 SECONDS (9.4-12.5)
[2018-07-25] MEDS: Lactobacillus Acidophilus 500 MU Cap PO SCH ×2 (10:09→17:47)
[2018-07-26] MEDS: ceFAZolin 1 gm in NS 1 GM/100 ML BAG IVPB SCH ×3 (05:44→21:12)
[2018-07-26] MEDS: Pantoprazole 40 mg EC Tab PO SCH (05:44)
[2018-07-26 07:16] LABS: INR 2.58; PROTHROMBIN TIME 30.3 SECONDS (9.4-12.5)
[2018-07-26] MEDS: Metoprolol Succinate 100 mg XL Tab PO SCH (07:34)
--- NOTE | 2018-07-26 09:12 | CP.PCM.PN ---
<Sunny Chou - Last Filed: 07/26/18 19:56> Subjective - Date & Time of Evaluation Date of Evaluation: 07/26/18 Time of Evaluation: 08:00 - Subjective Subjective: Internal Medicine Progress Note for Dr. Zahra Chou PGY1 77F seen and evaluated at bedside this morning. No acute events overnight. She complains of decreased appetite yesterday with one loose stool. Denies diarrhea or watery stool. Patient resting comfortably in bed. Tolerating her diet. She is working with physical therapy. Patient is on her last scheduled dose of antibiotics. Denies fever, chills, nausea, shortness of breath, cough, chest pain, palpitations, headache, dizziness, or urinary symptoms. Objective - Vital Signs/Intake and Output Vital Signs (last 24 hours): Temp Pulse Resp BP Pulse Ox 98.4 F 68 18 116/59 L 96 07/25/18 16:00 07/26/18 07:34 07/25/18 16:00 07/26/18 07:34 07/25/18 16:00 - Medications Medications: Current Medications Acetaminophen (Tylenol 325mg Tab) 650 mg PO Q4H PRN; Protocol PRN Reason: Pain, Mild (1-3) Last Admin: 07/20/18 06:31 Dose: 650 mg Atorvastatin Calcium (Lipitor) 20 mg PO DIN [facility] PRN Reason: Protocol Last Admin: 07/25/18 17:47 Dose: 20 mg Cefazolin Sodium (Ancef 1gm In Ns) 1 gm in 100 mls @ 100 mls/hr IVPB Q8 [facility] PRN Reason: Protocol Stop: 07/28/18 22:00 Last Admin: 07/26/18 05:44 Dose: 100 mls/hr Lactobacillus Acidophilus (Bacid Acidophilus) 1 cap PO 1000,1800 [facility] PRN Reason: Protocol Last Admin: 07/25/18 17:47 Dose: 1 cap Metoprolol Succinate (Toprol Xl) 100 mg PO BRK [facility] PRN Reason: Protocol Last Admin: 07/26/18 07:34 Dose: 100 mg Pantoprazole Sodium (Protonix Ec Tab) 40 mg PO 0600 [facility] PRN Reason: Protocol Last Admin: 07/26/18 05:44 Dose: 40 mg Sertraline HCl (Zoloft) 50 mg PO DAILY [facility] PRN Reason: Protocol Last Admin: 07/25/18 10:09 Dose: 50 mg Trazodone HCl (Desyrel) 50 mg PO HS PRN; Protocol PRN Reason: Sedation Last Admin: 07/25/18 21:25 Dose: 50 mg Warfarin Sodium (Coumadin) 2.5 mg PO MOTH@1800 [facility] PRN Reason: Protocol Last Admin: 07/25/18 17:47 Dose: 2.5 mg Warfarin Sodium (Coumadin) 5 mg PO SUTUWEFRSA@1800 [facility] PRN Reason: Protocol - Labs Labs: 07/20/18 08:20 07/20/18 08:20 PT 30.3 SECONDS (9.4-12.5) H 07/26/18 06:30 INR 2.58 07/26/18 06:30 - Constitutional Appears: Well, Non-toxic, No Acute Distress - Head Exam Head Exam: ATRAUMATIC, NORMAL INSPECTION, NORMOCEPHALIC - Eye Exam Eye Exam: EOMI Pupil Exam: PERRL - ENT Exam ENT Exam: Mucous Membranes Moist - Respiratory Exam Respiratory Exam: Clear to Ausculation Bilateral, NORMAL BREATHING PATTERN. absent: Wheezes - Cardiovascular Exam Cardiovascular Exam: +S1, +S2. absent: Murmur - GI/Abdominal Exam GI & Abdominal Exam: Soft, Normal Bowel Sounds. absent: Tenderness - Extremities Exam Extremities Exam: absent: Pedal Edema, Tenderness Additional comments: Cast on the right arm Palpable radial pulses bilaterally - Neurological Exam Neurological Exam: Alert, Awake, Oriented x3 - Psychiatric Exam Psychiatric exam: Normal Affect, Normal Mood - Skin Skin Exam: Dry, Intact, Normal Color, Warm Assessment and Plan - Assessment and Plan (Free Text) Assessment: 77F, PMH of Aortic Aneurysm, AV replacement 2017 on Coumadin, Afib, CVA 2012, Cataracts, Anemia, HTN, GERD, presented with right wrist swelling admitted to TCU s/p closed reduction of a right radius colles fracture and cellulitis. Patient is currently on Coumadin. Plan: 1. Right Radius Colles Fracture - Right arm cast in place - f/u recommendations per Orthopedics - Continue physical therapy sessions - Patient will be going home with health services 2. History of Prosthetic AV replacement and Atrial Fibrillation - Patient on Coumadin - Coumadin 2.5mg Wednesday and - Coumadin 5mg Wednesday, Wednesday, Wednesday, Wednesday, Wednesday - Continue to monitor INR for therapeutic levels - Adjust Coumadin dosage as needed 3. Cellulitis - IV Cefazolin day #09/07 - f/u recommendations per ID - AM labs 4. Loose stools - Patient had one episode of loose stool yesterday - Will provide patient with Probiotics GI: Pepcid DVT: Warfarin Diet: HHD Dispo: Upon discharge the patient will follow-up with Dr. Douglass. Patient to be discharged 07/27 with Home with Health Services. Case discussed and reviewed with Dr. Aguilar Chou PGY1 <Zahra Sheikh R - Last Filed: 07/27/18 07:45> Objective - Vital Signs/Intake and Output Vital Signs (last 24 hours): Temp Pulse Resp BP Pulse Ox 98.1 F 77 20 129/78 96 07/27/18 06:00 07/27/18 06:00 07/27/18 06:00 07/27/18 06:00 07/27/18 06:00 - Medications Medications: Current Medications Acetaminophen (Tylenol 325mg Tab) 650 mg PO Q4H PRN; Protocol PRN Reason: Pain, Mild (1-3) Last Admin: 07/20/18 06:31 Dose: 650 mg Atorvastatin Calcium (Lipitor) 20 mg PO DIN [facility] PRN Reason: Protocol Last Admin: 07/26/18 17:58 Dose: 20 mg Cefazolin Sodium (Ancef 1gm In Ns) 1 gm in 100 mls @ 100 mls/hr IVPB Q8 [facility] PRN Reason: Protocol Stop: 07/28/18 22:00 Last Admin: 07/27/18 06:05 Dose: 100 mls/hr Lactobacillus Acidophilus (Bacid Acidophilus) 1 cap PO 1000,1800 [facility] PRN Reason: Protocol Last Admin: 07/26/18 17:44 Dose: 1 cap Metoprolol Succinate (Toprol Xl) 100 mg PO BRK [facility] PRN Reason: Protocol Last Admin: 07/26/18 07:34 Dose: 100 mg Pantoprazole Sodium (Protonix Ec Tab) 40 mg PO 0600 [facility] PRN Reason: Protocol Last Admin: 07/27/18 06:06 Dose: 40 mg Sertraline HCl (Zoloft) 50 mg PO DAILY [facility] PRN Reason: Protocol Last Admin: 07/26/18 09:55 Dose: 50 mg Trazodone HCl (Desyrel) 50 mg PO HS PRN; Protocol PRN Reason: Sedation Last Admin: 07/26/18 21:13 Dose: 50 mg Warfarin Sodium (Coumadin) 2.5 mg PO MOTH@1800 [facility] PRN Reason: Protocol Last Admin: 07/25/18 17:47 Dose: 2.5 mg Warfarin Sodium (Coumadin) 5 mg PO SUTUWEFRSA@1800 [facility] PRN Reason: Protocol Last Admin: 07/26/18 17:59 Dose: 5 mg - Labs Labs: 07/20/18 08:20 07/20/18 08:20 PT 31.1 SECONDS (9.4-12.5) H 07/27/18 06:30 INR 2.65 07/27/18 06:30 Attending/Attestation - Attestation I have personally seen and examined this patient.: Yes I have fully participated in the care of the patient.: Yes I have reviewed all pertinent clinical information, including history, physical exam and plan: Yes Notes (Text): Patient seen and examined by me at 12:10PM with resident 07/26/18. Case including HPI, physical exam, and assessment and plan discussed with resident. Agree with above with following additions/corrections. Patient is a 77-year-old female past medical history significant for aortic aneurysm, status post aortic valve replacement, atrial fibrillation maintained on Coumadin, CVA, cataracts, anemia, hypertension, and GERD who was admitted to the TCU status post orthopedic surgery and closed reduction of distal right radial fracture status post mechanical fall. Patient states she is feeling okay. States she has some pain in her right arm with movement. States she had some "mucous" when she had a bowel movement but stool was formed. She denies any chest pain or palpitations. No headaches or dizziness. No nausea, vomiting, or abdominal pain. No fevers or chills. Physical exam: Gen: Awake and alert sitting up in chair in no acute distress. HEENT: Normocephalic, atraumatic. Extraocular muscles intact, pupils equal reactive. No scleral icterus. Oropharynx is pink and moist. Neck is supple. Cardiovascular: Positive systolic murmur. No rubs or gallops appreciated Pulmonary: Normal respiratory effort. No rhonchi, rales, or wheezing appreciated Gastrointestinal: Soft, nontender, nondistended. Positive bowel sounds all 4 quadrants, no guarding. Musculoskeletal: Decreased range of motion right upper extremity. Right upper extremity in sling. Cast area clean, dry, and intact Central nervous system: AAO 3 Dermatologic: Skin warm and dry Assessment and plan:Patient is a 77-year-old female past medical history significant for aortic aneurysm, status post aortic valve replacement, atrial fibrillation maintained on Coumadin, CVA, cataracts, anemia, hypertension, and GERD who was admitted to the TCU status post orthopedic surgery and closed reduction of distal right radial fracture status post mechanical fall. 1. Status post closed reduction of right distal radial fracture with cellulitis. Cast to remain in place for at least 2-3 weeks. Keep arm elevated. S /P 10 days of antibiotics. Continue PT/OT has tolerated. Right hip/pelvix xray per radiologist shows no acute fracture, patient has no hip pain. 2. Atrial fibrillation. Rate controlled. INR therapeutic. Continue home dosing of Coumadin. Repeat INR tomorrow. Continue metoprolol. 3. Hypertension. Continue metoprolol 4. Hypercholesterolemia. Continue Lipitor 5. Depression. Continue Zoloft and trazodone Case was discussed in detail with patient regarding current diagnosis and treatment plan.
[2018-07-26] MEDS: Lactobacillus Acidophilus 500 MU Cap PO SCH ×2 (09:55→17:44)
[2018-07-27] MEDS: ceFAZolin 1 gm in NS 1 GM/100 ML BAG IVPB SCH (06:05)
[2018-07-27] MEDS: Pantoprazole 40 mg EC Tab PO SCH (06:06)
[2018-07-27 07:01] VITALS: RESP 20; TEMP 98.1; O2SAT 96
[2018-07-27 07:12] LABS: INR 2.65; PROTHROMBIN TIME 31.1 SECONDS (9.4-12.5)
[2018-07-27 07:49] LABS: BASO # 0.02 K/mm3 (0.0-2.0); BASO % 0.3 % (0.0-3.0); EOS # 0.3 (0.0-0.7); EOS % 5.4 % (1.5-5.0); GRAN # 3.78 (1.4-6.5); GRAN % 59.6 % (50.0-68.0); HEMOGLOBIN 11.1 g/dL (12.0-16.0); LYMPH # 1.6 (1.2-3.4); LYMPH % 24.8 % (22.0-35.0); MEAN CELL VOLUME 83.7 fl (80.0-105.0); MEAN CORPUSCULAR HEMOGLOBIN 26.9 pg (25.0-35.0); MEAN CORPUSCULAR HGB CONC 32.2 g/dl (31.0-37.0); MONO # 0.6 (0.1-0.6); MONO % 9.9 % (1.0-6.0); RBC 4.12 10^6/uL (3.5-6.1); RED CELL DISTRIBUTION WIDTH 15.7 % (11.5-14.5); WHITE BLOOD COUNT 6.3 10^3/ul (4.5-11.0)
[2018-07-27 08:31] LABS: ALB/GLOB RATIO 1.1 (1.1-1.8); ALBUMIN 3.3 g/dL (3.0-4.8); ALT/SGPT 16 U/L (7-56); AST/SGOT 26 U/L (14-36); BLOOD UREA NITROGEN 14 mg/dL (7-21); CALCIUM 8.8 mg/dL (8.4-10.5); GFR NON-AFRICAN AMERICAN > 60
[2018-07-27] MEDS: Metoprolol Succinate 100 mg XL Tab PO SCH (09:00)
[2018-07-27] MEDS: Lactobacillus Acidophilus 500 MU Cap PO SCH (09:43)
[2018-07-27 09:46] VITALS: BP 135/70; PULSE 75
--- NOTE | 2018-07-27 16:25 | CP.PCM.DIS ---
Provider - Provider Date of Admission: 07/19/18 17:34 Attending physician: Zahra Sheikh DO Primary care physician: Fatmata Douglass MD Consults: Dr. Deborah CASTILLO Time Spent in preparation of Discharge (in minutes): 35 Hospital Course - Lab Results Lab Results: Most Recent Lab Values WBC 6.3 10^3/ul (4.5-11.0) 07/27/18 07:30 RBC 4.12 10^6/uL (3.5-6.1) 07/27/18 07:30 Hgb 11.1 g/dL (12.0-16.0) L 07/27/18 07:30 Hct 34.5 % (36.0-48.0) L 07/27/18 07:30 MCV 83.7 fl (80.0-105.0) 07/27/18 07:30 MCH 26.9 pg (25.0-35.0) 07/27/18 07: MCHC 32.2 g/dl (31.0-37.0) 07/27/18 07:30 RDW 15.7 % (11.5-14.5) H 07/27/18 07:30 Plt Count 240 10^3/uL (120.0-450.0) 07/27/18 07:30 MPV 9.0 fl (7.0-11.0) 07/27/18 07:30 Gran % 59.6 % (50.0-68.0) 07/27/18 07: Lymph % (Auto) 24.8 % (22.0-35.0) 07/27/18 07:30 Morton % (Auto) 9.9 % (1.0-6.0) H 07/27/18 07:30 Eos % (Auto) 5.4 % (1.5-5.0) H 07/27/18 07:30 Baso % (Auto) 0.3 % (0.0-3.0) 07/27/18 07:30 Gran # 3.78 (1.4-6.5) 07/27/18 07:30 Lymph # (Auto) 1.6 (1.2-3.4) 07/27/18 07:30 Morton # (Auto) 0.6 (0.1-0.6) 07/27/18 07:30 Eos # (Auto) 0.3 (0.0-0.7) 07/27/18 07:30 Baso # (Auto) 0.02 K/mm3 (0.0-2.0) 07/27/18 07:30 PT 31.1 SECONDS (9.4-12.5) H 07/27/18 06:30 INR 2.65 07/27/18 06:30 Sodium 137 mmol/L (132-148) 07/27/18 07:30 Potassium 4.1 mmol/L (3.6-5.0) 07/27/18 07:30 Chloride 101 mmol/L (98-107) 07/27/18 07:30 Carbon Dioxide 27 mmol/L (21-33) 07/27/18 07:30 Anion Gap 14 (10-20) 07/27/18 07:30 BUN 14 mg/dL (7-21) 07/27/18 07:30 Creatinine 0.8 mg/dl (0.7-1.2) 07/27/18 07:30 Est GFR ( Amer) > 60 07/27/18 07:30 Est GFR (Non-Af Amer) > 60 07/27/18 07:30 Random Glucose 119 mg/dL (70-110) H 07/27/18 07:30 Calcium 8.8 mg/dL (8.4-10.5) 07/27/18 07:30 Total Bilirubin 0.5 mg/dL (0.2-1.3) 07/27/18 07:30 AST 26 U/L (14-36) 07/27/18 07:30 ALT 16 U/L (7-56) 07/27/18 07:30 Alkaline Phosphatase 117 U/L (38-126) 07/27/18 07:30 Total Protein 6.3 g/dL (5.8-8.3) 07/27/18 07:30 Albumin 3.3 g/dL (3.0-4.8) 07/27/18 07:30 Globulin 3.0 gm/dL 07/27/18 07:30 Albumin/Globulin Ratio 1.1 (1.1-1.8) 07/27/18 07:30 - Hospital Course Hospital Course: Upon admission: This patient is a 77-year old female who presented to the ER on 07/15/2018 after sustaining a fall and a resulting highly displaced and comminuted fracture of her right dominant distal radius. The patients fracture was reduced in the ER, and the patient was seen by Ortho two days later. Per Ortho physician Dr. Lao note the reduction of the fracture was inadequately done in the ER and the patient had to be taken to the OR on 07/19/18 under [place] block of Xylocaine to anesthetize the wrist. The patient successfully underwent closed reduction and was confirmed later by an adequate post reduction x-ray. A cast was placed for 2-3 weeks per physician request and changed periodically. Hospital Stay: 07/20 Patient was seen and examined at bedside. Patient denied any bleeding, erythema, intractable pain, color changes after the procedure. Patient stayed in TCU for Coumadin- lovenox bridging. Patient admitted to moderate right wrist pain controlled with medications. She denied chest pain, cough, SOB, headache, palpitation, or dizziness. INR was calculated at 4.2 on 07/20 and patient showed no signs of bleeding. ID was consulted for possible cellulitis and per their recommendation patient was started on a 10- day regimen of Cefazolin. Patient was afebrile and had no leukocytosis. 07/22 Patient was seen and examined at bedside. Patient denied any events overnight, and said that pain was well controlled with medications. Patient admitted to sleeping well and having a good appetite. Patient denied any chest pain, SOB, palpitations, fevers, or chills. Patient was still undergoing warfarin-heparin bridge with PT/INR of 20.1/1.73, patient was monitored until therapeutic level achieved. PT/OT were consulted for her status post closed reduction fracture and cast placement. Patient continued IV cefazolin treatment for cellulitis, and echo was done because of her history of aortic valve replacement and was found to be normal. 07/24 Patient seen and evaluated. No acute events reported overnight. Patient indicates she is feeling better and continues to work with physical therapy. She does complain of right sided hip pain on admission and requests to have her hip evaluated with xray. She denies chest pain, shortness of breath, abdominal pain, nausea, vomiting, fever, chills, gait instability, falls. Patient underwent Right hip and pelvic x-ray, which was found to be negative for any acute displaced fractures or dislocations of the hip. Patient continued to undergo PT/OT s/p fracture. INR was still being monitored, and patient is on day 8 of IV cefazolin treatment for cellulitis. 07/26 Patient seen and examined at bedside with no acute events overnight. She complains of decreased appetite yesterday with one loose stool. Denies diarrhea or watery stool. Patient resting comfortably in bed. Tolerating her diet. She is working with physical therapy. Patient is on her last scheduled dose of antibiotics. Denies fever, chills, nausea, shortness of breath, cough, chest pain, palpitations, headache, dizziness, or urinary symptoms. Only change of treatment plan this day was the addition of Probiotics for patients complaint of loose stools. Patient completed last day of Antibiotic treatment today. 07/27: Patient noticed streaks of blood when wiping after bowel movement. GI consulted and evaluated patient. Patient to followup with GI. Upon Discharge: The patient will follow-up with Dr. Douglass, Dr Meyer, Dr. Singh and Dr. Cabrera. Patient to be discharged 07/27 with Home with Health Services. Discharge Exam - Head Exam Head Exam: ATRAUMATIC, NORMAL INSPECTION, NORMOCEPHALIC - Eye Exam Eye Exam: PERRL Pupil Exam: PERRL - Respiratory Exam Respiratory Exam: Clear to PA & Lateral. absent: Respiratory Distress - Cardiovascular Exam Cardiovascular Exam: Irregular Rhythm, +S1, +S2 - GI/Abdominal Exam GI & Abdominal Exam: Normal Bowel Sounds. absent: Guarding - Extremities Exam Additional comments: Right hand is in cast, swelling appreciated that is limited to the wrist. Pulses palpable B/L in upper and lower extremities - Neurological Exam Neurological exam: Alert, Oriented x3 - Skin Skin Exam: Normal Color, Warm Discharge Plan - Follow Up Plan Condition: GOOD Disposition: HOME/ ROUTINE Instructions: Heart Healthy Diet, Cast Care, Atrial Fibrillation (DC), Vitamin K Diet, Cellulitis (Skin Infection), Adult (DC), Warfarin, Closed Fracture Reduction (DC) Additional Instructions: Please follow up with your primary MD, Dr. Galaviz within 3-5 days Please follow up with Dr. Meyer within 3 days, you will need your INR ( coumadin number) checked. Please follow up with Dr. Cabrera within one week for blood noted on toilet paper, return to ED if this continues or worsens. Please follow up with your orthopdedic surgeon, Dr. Singh within one week. Please keep cast dry. Please continue taking your medications as per previously before arriving to the hospital. Please return to the the nearest emergency department symptoms return. Referrals: Robert Cabrera MD [Staff Provider] - Bruce Singh DO [Staff Provider] - Fatmata Sheridan MD [Primary Care Provider] -
--- NOTE | 2018-07-28 21:12 | CON ---
Copied To: Robert Cabrera MD Attending MD: Robert Cabrera MD DATE: 07/27/2018 GASTROENTEROLOGY CONSULTATION REQUESTING PHYSICIAN: Whit Herbert MD REASON FOR CONSULTATION: I have been asked to see this 77-year-old female who is admitted to TCU for adjustment of her warfarin as she is status post closed reduction of a right distal radial fracture after a fall. I have been asked to see this patient for rectal bleeding. The patient's INR was elevated several days ago. The patient states that she had one episode of diarrhea yesterday. She states that at that time she noted spot of blood after wiping her anus after a bowel movement. She currently denies any abdominal pain, any further rectal bleeding, nausea, vomiting. She apparently did have a colonoscopy a couple of years ago. She denies any chest pain or shortness of breath. PAST MEDICAL HISTORY: Notable for CVA, hypertension, GERD, anemia, aortic aneurysm, valvular heart disease and cataracts. PAST SURGICAL HISTORY: Notable for aortic valve replacement as well as removal of benign left breast cyst. SOCIAL HISTORY: She denies cigarette smoking or alcohol use. FAMILY HISTORY: Noncontributory. REVIEW OF SYSTEMS: A 14-point review of systems is notable for scant rectal bleeding and one episode of diarrhea. MEDICATIONS: Her medications at home include trazodone, Coumadin, Zoloft, pravastatin, Protonix, metoprolol, and . PHYSICAL EXAMINATION GENERAL: Well-developed female lying in bed, in no acute distress. VITAL SIGNS: Reveal temperature of 98.1, blood pressure 135/70, heart rate of 75. HEENT: Reveals sclerae to be white. Conjunctivae pink. NECK: Supple. CHEST: Reveal lungs to be clear. HEART: Reveals an irregular rate. ABDOMEN: Soft, nontender. EXTREMITIES: Show no edema. Her right wrist is in a cast. RECTAL EXAM: Shows the presence of small external skin tags, medium lateral internal hemorrhoids bilaterally. No mass. No blood in the rectal vault. LABORATORY DATA: Reveal white blood cell count of 6.3, hemoglobin 11.1, platelet count 240,000. Coags show a PT of 31.1, INR 2.65. On 07/24/2018, her PT was 43.2 with an INR 3.66. Chemistries reveal normal electrolytes. IMPRESSION: A 77-year-old female with a history of a fall sustaining a right radial wrist fracture status post closed reduction with a history of cardiac arrhythmia, status post aortic valve placement on warfarin with one episode of scant rectal bleeding. I suspect that this bleeding is from hemorrhoids. She has not had any further bleeding since then. RECOMMENDATIONS: 1. No further GI workup is recommended at this time I will check the results of her last colonoscopy. 2. No contraindication to resuming Coumadin. If the patient continues to have rectal bleeding, I have asked her to call me and possibly hold the Coumadin for several days. She is clear to be discharged home. Robert Cabrera MD
== END 2018-07-27 14:15 | disposition home health service (06) | DRG 560 ==
LOC: TRCU 17:34
PROVIDERS: ADMIT Internal Medicine; ATTEND Hospitalist
PROC: F07Z9FZ Gait Training/Functional Ambulation Treatment using Assistive, Adaptive, Supportive or Protective Equipment (ICD-10-PCS; principal; 2018-07-21)
PROC: F07Z5FZ Bed Mobility Treatment using Assistive, Adaptive, Supportive or Protective Equipment (ICD-10-PCS; 2018-07-21)
PROC: F07Z8FZ Transfer Training Treatment using Assistive, Adaptive, Supportive or Protective Equipment (ICD-10-PCS; 2018-07-21)
PROC: F07L6ZZ Therapeutic Exercise Treatment of Musculoskeletal System - Lower Back / Lower Extremity (ICD-10-PCS; 2018-07-21)
PROC: F08Z0FZ Bathing/Showering Techniques Treatment using Assistive, Adaptive, Supportive or Protective Equipment (ICD-10-PCS; 2018-07-21)
PROC: F08Z2ZZ Grooming/Personal Hygiene Treatment (ICD-10-PCS; 2018-07-21)
PROC: F08Z1ZZ Dressing Techniques Treatment (ICD-10-PCS; 2018-07-21)
DX: S52.501D Unspecified fracture of the lower end of right radius, subsequent encounter for closed fracture with routine healing (principal); L03.113 Cellulitis of right upper limb; S52.611D Displaced fracture of right ulna styloid process, subsequent encounter for closed fracture with routine healing; K21.9 Gastro-esophageal reflux disease without esophagitis; I10 Essential (primary) hypertension; I71.9 Aortic aneurysm of unspecified site, without rupture; D64.9 Anemia, unspecified; E78.00 Pure hypercholesterolemia, unspecified; F32.9 Major depressive disorder, single episode, unspecified; I48.91 Unspecified atrial fibrillation; E78.5 Hyperlipidemia, unspecified; M25.551 Pain in right hip; H26.9 Unspecified cataract; Z95.2 Presence of prosthetic heart valve; Z79.01 Long term (current) use of anticoagulants; Z86.73 Personal history of transient ischemic attack (TIA), and cerebral infarction without residual deficits; Z87.01 Personal history of pneumonia (recurrent); Z88.2 Allergy status to sulfonamides; Z91.040 Latex allergy status; W18.30XD Fall on same level, unspecified, subsequent encounter